=== PATIENT | female | born 1980 | race Caucasian/White ===

== ENCOUNTER 2016-11-10 17:45 | Emergency (ER) | payer BC, OTHER ==
[2016-11-10 17:54] VITALS: BP 126/82
--- NOTE | 2016-11-10 18:13 | EDM.PDOC ---
ED HPI GENERAL MEDICAL PROBLEM - General Chief Complaint: Upper Extremity Injury/Pain Stated Complaint: R HAND INJURY Time Seen by Provider: 11/10/16 17:55 Source of Information: Reports: Patient History Limitations: Reports: No Limitations - History of Present Illness INITIAL COMMENTS - FREE TEXT/NARRATIVE: Patient has a fracture of her distal right ulna Chief complaint his cast is too tight with constant throbbing severe pain over the dorsal right wrist and dorsal hand. No doubt the tissues have swollen due to the heat outside in the arm likely being held by her side. Chest is due to come off on Wednesday which is 3 days away. Plan bivalve cast Onset: Today Onset Date: 11/10/16 Duration: Hour(s): Location: Reports: Upper Extremity, Right Quality: Reports: Pressure, Throbbing Severity: Moderate Improves with: Reports: None Worsens with: Reports: None Context: Denies: Activity, Exercise, Lifting, Sick Contact, Trauma, Other Associated Symptoms: Reports: No Other Symptoms Treatments EYE SURGEON: Reports: Other (see below) (None.) Right Hand Pain Score (Numeric/FACES): 6 - Related Data Allergies Allergy/AdvReac Type Severity Reaction Status Date / Time codeine Allergy Hives Verified 11/10/16 17:55 Home Meds: Home Meds . [No Known Home Meds] 11/10/16 [History] Past Medical History Cardiovascular History: Reports: Blood Clots/VTE/DVT - Past Surgical History Female Surgical History: Reports: Oophorectomy, Tubal Ligation Social & Family History - Tobacco Use Smoking Status *Q: Current Some Day Smoker Years of Tobacco use: 1 Packs/Tins Daily: 0.1 - Recreational Drug Use Recreational Drug Use: No Review of Systems - Review of Systems Review Of Systems: See Below Constitutional: Reports: No Symptoms Eyes: Reports: No Symptoms Ears: Reports: No Symptoms Nose: Reports: No Symptoms Mouth/Throat: Reports: No Symptoms Respiratory: Reports: No Symptoms Cardiovascular: Reports: No Symptoms GI/Abdominal: Reports: No Symptoms Genitourinary: Reports: No Symptoms Musculoskeletal: Reports: Hand Pain, Other Skin: Reports: No Symptoms (Right wrist pain throbbing.) Neurological: Reports: No Symptoms Psychiatric: Reports: No Symptoms ED EXAM, GENERAL - Physical Exam Exam: See Below Exam Limited By: No Limitations General Appearance: Alert, WD/WN, Mild Distress Extremities: Other (Patient does appear to have swelling of her knuckles dorsal hand on the right side. Pain is constant and throbbing over the fracture site and wrist area.) Neurological: Alert, Oriented, CN II-XII Intact, Normal Cognition Course - Vital Signs Last Recorded V/S: Last Vital Signs Temp 36.8 C 11/10/16 17:52 Pulse 92 11/10/16 17:52 Resp 16 11/10/16 17:52 BP 126/82 11/10/16 17:52 Pulse Ox 97 11/10/16 17:52 - Orders/Labs/Meds Orders: Active Orders 24 hr Category Date Time Status Hand Comp Min 3V Rt [CR] Stat Exams 11/10/16 18:05 Ordered B-TYPE NATRIURETIC PEPTIDE,BNP [CHEM] Stat Lab 11/10/16 18:05 Ordered C-REACTIVE PROTEIN [CHEM] Stat Lab 11/10/16 18:05 Ordered CBC WITH AUTO DIFF [HEME] Stat Lab 11/10/16 18:05 Ordered - Radiology Interpretation Free Text/Narrative:: 36-year-old female with a fracture of her distal right ulna on the right side for the last 5-1/2 weeks presents the ED with complaint of the cast feeling too tight. Feels like squeezing her wrist with constant severe throbbing pain and swelling of the dorsal hand. To have the cast off in 3 days time. She apparently called her orthopedic surgeon's office with no recall back today. Therefore the cast was bivalved and Alfredo wrap to place. Patient got immediate relief of the pain after the cast was bivalved at the wrist. She'll follow-up with Dr. Chavez in the clinic on Wednesday as planned for cast to be removed completely. Departure - Departure Time of Disposition: 18:11 Disposition: Home, Self-Care 01 Condition: Fair Clinical Impression: Cast discomfort - Discharge Information Referrals: PCP,None [Primary Care Provider] - Forms: ED Department Discharge Additional Instructions: Evaluation in resume today due to increasing pain over distal aspect of ulna right wrist under cast. Cast is due to come off in 3 days time. Constant throbbing severe pain at the wrist appreciated with swelling of the hand by patient. Cast therefore bivalved and then Alfredo wrapped in place until follow-up with Dr. Carter on Wednesday as planned.
--- NOTE | 2016-11-10 19:00 | EDM.PDOC ---
ED HPI GENERAL MEDICAL PROBLEM - General Chief Complaint: Upper Extremity Injury/Pain Stated Complaint: R HAND INJURY Time Seen by Provider: 11/10/16 18:05 Source of Information: Reports: Patient History Limitations: Reports: No Limitations - History of Present Illness INITIAL COMMENTS - FREE TEXT/NARRATIVE: Patient presents for evaluation and treatment of an injury to the right hand. Patient reports on Wednesday she was working in the kitchen. She believes she hit her hand on a cabinet hardwear. Her hand has steadily been getting worsen. She is currently complaining of pain, erythema, numbness, tingling and swelling to the dorsal right hand. No wounds or bruising. Additionally patient denies any fevers, chills, nausea or vomiting. Has tried OTC ibuprofen and ice with little relief. Patient is right handed. Onset Date: 11/08/16 Duration: Day(s): (2) Location: Reports: Upper Extremity, Right Right Hand Pain Score (Numeric/FACES): 6 - Related Data Allergies Allergy/AdvReac Type Severity Reaction Status Date / Time codeine Allergy Hives Verified 11/10/16 17:55 Home Meds: Home Meds . [No Known Home Meds] 11/10/16 [History] Past Medical History Cardiovascular History: Reports: Blood Clots/VTE/DVT - Past Surgical History Female Surgical History: Reports: Oophorectomy, Tubal Ligation Social & Family History - Tobacco Use Smoking Status *Q: Current Some Day Smoker Years of Tobacco use: 1 Packs/Tins Daily: 0.1 - Recreational Drug Use Recreational Drug Use: No Review of Systems - Review of Systems Review Of Systems: See Below Constitutional: Denies: Chills, Fever GI/Abdominal: Denies: Nausea, Vomiting Musculoskeletal: Reports: Hand Pain (right), Joint Swelling (right hand) Skin: Reports: Erythema (dorsal right hand). Denies: Bruising Neurological: Reports: Numbness (right hand), Tingling (right hand) ED EXAM, GENERAL - Physical Exam Exam: See Below Exam Limited By: No Limitations General Appearance: Alert, WD/WN, No Apparent Distress Respiratory/Chest: No Respiratory Distress, Lungs Clear Cardiovascular: Normal Peripheral Pulses, Regular Rate, Rhythm Peripheral Pulses: 2+: Radial (L), Radial (R) Extremities: Normal Capillary Refill, Joint Swelling (dorsal right hand metacarpals 2-4), Limited Range of Motion (making a fist causes pain, unable to make a fist; able to flex extend, adduct, abduct and oppose fingers), Increased Warmth (dorsal right hand metacarpals 2-4) Neurological: Alert, Oriented, Normal Cognition, Other (reports good sensation to light touch to the right hand) Psychiatric: Normal Affect, Normal Mood Skin Exam: Warm, Dry, Erythema (swelling and slight erythema to the dorsal right hand over the 2nd and 3rd MTP joints ) Course - Vital Signs Last Recorded V/S: Last Vital Signs Temp 36.8 C 11/10/16 17:52 Pulse 92 11/10/16 17:52 Resp 16 11/10/16 17:52 BP 126/82 11/10/16 17:52 Pulse Ox 97 11/10/16 17:52 - Orders/Labs/Meds Labs: Laboratory Tests 11/10/16 11/10/16 11/10/16 Range/Units 18:20 18:20 18:20 WBC 8.95 (3.98-10.04) K/mm3 RBC 5.20 (3.98-5.22) M/mm3 Hgb 14.1 (11.2-15.7) gm/L Hct 43.5 (34.1-44.9) % MCV 83.7 (79.4-94.8) fl MCH 27.1 (25.6-32.2) pg MCHC 32.4 (32.2-35.5) g/dl RDW Std Deviation 45.3 (36.4-46.3) fL Plt Count 345 (182-369) K/mm3 MPV 10.0 (9.4-12.3) fl Neut % (Auto) 63.0 (34.0-71.1) % Lymph % (Auto) 27.6 (19.3-51.7) % [place] % (Auto) 5.7 (4.7-12.5) % Eos % (Auto) 3.4 (0.7-5.8) Baso % (Auto) 0.2 (0.1-1.2) % Neut # (Auto) 5.64 (1.56-6.13) K/mm3 Lymph # (Auto) 2.47 (1.18-3.74) K/mm3 [place] # (Auto) 0.51 H (0.24-0.36) K/mm3 Eos # (Auto) 0.30 (0.04-0.36) K/mm3 Baso # (Auto) 0.02 (0.01-0.08) K/mm3 Sodium 137 (136-145) mEq/L Potassium 3.7 (3.5-5.1) mEq/L Chloride 101 (98-107) mEq/L Carbon Dioxide 27 (21-32) mEq/L Anion Gap 12.7 (5-15) BUN 14 (7-18) mg/dL Creatinine 0.8 (0.55-1.02) mg/dL Est Cr Clr Drug Dosing 81.19 mL/min Estimated GFR (MDRD) > 60 (>60) mL/min BUN/Creatinine Ratio 17.5 (14-18) Glucose 103 (74-106) mg/dL Calcium 8.9 (8.5-10.1) mg/dL C-Reactive Protein < 0.2 (<1.0) mg/dL - Radiology Interpretation Free Text/Narrative:: xray of the right hand shows no acute fractures or dislocations. Reviewed by myself and Dr. Hancock - Re-Assessments/Exams Free Text/Narrative Re-Assessment/Exam: 11/10/16 18:23 Given the swelling to the hand and the patient is not exactly sure what the mechanisms of injury is. Decided to obtain labs to eval for cellulites. 11/10/16 19:04 Labs returned: wbc is 8,95, hgb is 14.1 and plts are 345 CRP is <0.2 sodium is 137, potassium is 3.7 and chloride is 101. Anion gap is 12.7 I reviewed the labs and imaging with the patient. Appears to be deep bruising and swelling to the hand. Will have her monitor it closely and follow-up with her PCP if not better. Discharge instructions as documented. Departure - Departure Time of Disposition: 19:02 Disposition: Home, Self-Care 01 Condition: Fair Clinical Impression: Hand injury - Discharge Information Referrals: PCP,None [Primary Care Provider] - Nadine Wilde PA-C [Physician Circuits Engineer] - Forms: ED Department Discharge Additional Instructions: Wrist splint and marilu tapping as needed for pain relief. Ice the area 3-4 times a day for 10-15 minutes. [id number] Tylenol or Motrin as needed for pain relief. If your symptoms persist beyond 7-10 days follow-up with family medicine. Recommend Evelia Wilde at the [facility]. Please call [phone] to schedule with her. Please return to the ER if your symptoms change or worsen.
--- NOTE | 2016-11-11 07:57 | CR ---
Right hand: Four portable views of the right hand were obtained. Comparison: No previous study. Joint spaces are maintained. No fracture, dislocation or other bony abnormality is seen. Mild soft tissue swelling is present. Impression: 1. Mild soft tissue swelling. No bony abnormality is appreciated on right hand study. Diagnostic code #2
== END 2016-11-10 19:38 | disposition home or self-care (01) ==
LOC: JD.ED 17:45
DX: Z47.89 Encounter for other orthopedic aftercare (principal); F17.210 Nicotine dependence, cigarettes, uncomplicated; Z88.5 Allergy status to narcotic agent; Z90.710 Acquired absence of both cervix and uterus
CPT/HCPCS: 36415; 73130-26-RT; 73130-RT; 80048; 85025; 86140; 99283; 99284

== ENCOUNTER 2017-03-04 06:32 | Day surgery (SDC) | payer BC ==
[~2017-03-04 06:32] MED LIST: Lactated Ringers 1,000 ML IV SCH; Lidocaine 1%/Sod Bicarbonate in NS 8.4% 1 ML Syringe IV PRN; Sodium Chloride 0.9% 10 ML Syringe FLUSH PRN
[2017-03-04] MEDS ORDERED: Bupivacaine 0.25% 30 ML SDV ONE (06:41)
[2017-03-04] MEDS ORDERED: EPINEPHrine 1 MG/ML 30 ML MDV ONE (06:41)
--- NOTE | 2017-03-04 06:56 | PCM.PREANE ---
Preanesthetic Assessment - Anesthesia/Transfusion/Family Hx Anesthesia History: Prior Anesthesia Without Reaction Family History of Anesthesia Reaction: No Transfusion History: No Prior Transfusion(s) - Review of Systems General: No Symptoms Pulmonary: No Symptoms Cardiovascular: No Symptoms Gastrointestinal: No Symptoms Neurological: Numbness (patricia feet and hands) Other: Reports: None - Physical Assessment NPO Status Date: 03/03/17 NPO Status Time: 00:00 Pulse: 58 O2 Sat by Pulse Oximetry: 98 Respiratory Rate: 16 Blood Pressure: 127/80 Temperature: 36.8 C Height: 1.6 m Weight: 90.991 kg ASA Class: 2 Mental Status: Alert & Oriented x3 Airway Class: Mallampati = 1 Dentition: Reports: Normal Dentition Thyro-Mental Finger Breadths: 3 Mouth Opening Finger Breadths: 3 ROM/Head Extension: Full Lungs: Clear to Auscultation, Normal Respiratory Effort Cardiovascular: Regular Rate, Regular Rhythm, No Murmurs - Lab Values: Laboratory Last Values MRSA (PCR) Negative 02/24/17 15:20 - Allergies Allergies/Adverse Reactions: Allergies Allergy/AdvReac Type Severity Reaction Status Date / Time codeine Allergy Hives Verified 03/03/17 12:52 - Anesthesia Plan Pre-Op Medication Ordered: None - Acknowledgements Anesthesia Type Planned: General Anesthesia Pt an Appropriate Candidate for the Planned Anesthesia: Yes Alternatives and Risks of Anesthesia Discussed w Pt/Guardian: Yes Pt/Guardian Understands and Agrees with Anesthesia Plan: Yes PreAnesthesia Questionnaire HEENT History: Reports: Impaired Vision, Other (See Below) Other HEENT History: wears glasses Cardiovascular History: Reports: Blood Clots/VTE/DVT Respiratory History: Reports: None Gastrointestinal History: Reports: None, GERD Genitourinary History: Reports: None BELLY DUMP DRIVER History: Reports: None Musculoskeletal History: Reports: None Neurological History: Reports: None Psychiatric History: Reports: None Endocrine/Metabolic History: Reports: None Hematologic History: Reports: None Immunologic History: Reports: None Oncologic (Cancer) History: Reports: None Dermatologic History: Reports: None - Past Surgical History Head Surgeries/Procedures: Reports: None Cardiovascular Surgical History: Reports: None Respiratory Surgical History: Reports: None GI Surgical History: Reports: None Female Surgical History: Reports: Oophorectomy, Tubal Ligation Male Surgical History: Reports: None Endocrine Surgical History: Reports: None Neurological Surgical History: Reports: None Musculoskeletal Surgical History: Reports: None Oncologic Surgical History: Reports: None Dermatological Surgical History: Reports: None - SUBSTANCE USE Smoking Status *Q: Current Some Day Smoker Tobacco Use Within Last Twelve Months: Cigarettes Recreational Drug Use History: No - HOME MEDS Home Medications: Home Meds . [No Known Home Meds] 11/10/16 [History] - CURRENT (IN HOUSE) MEDS Current Meds: Current Medications Lactated Ringer's (Ringers, Lactated) 1,000 mls @ 125 mls/hr IV ASDIRECTED KRISH Lidocaine/Sodium Bicarbonate (Buffered Lidocaine 1% In Ns 8.4%) 0.25 ml IV ONETIME PRN PRN Reason: Prior to IV Start Sodium Chloride (Saline Flush) 10 ml FLUSH ASDIRECTED PRN PRN Reason: Keep Vein Open
[2017-03-04] MEDS ORDERED: fentaNYL 250 MCG/5 ML SDV ONE (07:17)
[2017-03-04] MEDS ORDERED: Midazolam 1 MG/ML 2 ML SDV ONE (07:17)
[2017-03-04] MEDS ORDERED: Ondansetron 4 MG/2 ML SDV ONE (07:17)
[2017-03-04] MEDS ORDERED: Propofol 200 MG/20 ML SDV ONE (07:17)
[2017-03-04] MEDS ORDERED: Rocuronium 50 MG/5 ML Vial ONE (07:17)
[2017-03-04] MEDS ORDERED: Lidocaine 1% 4 ML ONE (07:27)
[2017-03-04] MEDS ORDERED: ceFAZolin 1 GM Vial ONE (07:39)
[2017-03-04] MEDS ORDERED: Ketorolac 30 MG/ML SDV ONE (08:14)
[2017-03-04] MEDS ORDERED: fentaNYL 100 MCG/2 ML SDV IVPUSH PRN (08:33)
[2017-03-04] MEDS ORDERED: HYDROmorphone 0.5 MG/0.5 ML Syringe IVPUSH PRN (08:33)
--- NOTE | 2017-03-04 08:35 | PCM.POSTAN ---
POST ANESTHESIA ASSESSMENT - MENTAL STATUS Mental Status: Alert, Oriented - VITAL SIGNS Pulse Rate: 114 SaO2: 96 Resp Rate: 16 Blood Pressure: 139/74 Temperature: 36.9 C - RESPIRATORY Respiratory Status: Respiratory Rate WNL, Airway Patent, O2 Saturation Stable, Supplemental Oxygen - CARDIOVASCULAR CV Status: Pulse Rate WNL, Blood Pressure Stable - GASTROINTESTINAL GI Status: No Symptoms - PAIN Pain Score: 0 - POST OP HYDRATION Hydration Status: Adequate & Stable - OBSERVATIONS Free Text/Narrative:: no anesthesia complications noted
[2017-03-04 09:43] VITALS: BP 113/71
--- NOTE | 2017-03-15 11:47 | PCM.OPNOTE ---
- General Post-Op/Procedure Note Date of Surgery/Procedure: 03/04/17 Operative Procedure(s): right knee video arthroscopy with chondroplasty of the patella Pre Op Diagnosis: right knee patellar maltracking and osteoarthritis Post-Op Diagnosis: Same Anesthesia Technique: General LMA, Local Primary Surgeon: Luis Morgan Anesthesia Provider: Marco A Hartmann Trim Mounter: Dunia Toledo EBMargie in mLs: 5 Complications: None Condition: Good
--- NOTE | 2017-03-15 12:40 | OR ---
DATE OF OPERATION: 03/04/2017 SURGEON: Luis Morgan MD OPERATION PERFORMED: Right knee video arthroscopy with chondroplasty of the patella. PREOPERATIVE DIAGNOSIS: Right knee patellar maltracking and osteoarthritis. POSTOPERATIVE DIAGNOSIS: Right knee patellar maltracking and osteoarthritis. ANESTHESIA: General LMA with local. ANESTHESIA PROVIDER: Marco A Hartmann CRNA SAGGER SOAK: Dunia Toledo PA-C. ESTIMATED BLOOD LOSS: Less than 5 mL. COMPLICATIONS: None. CONDITION: Stable. DESCRIPTION OF PROCEDURE: The patient was identified in the preoperative holding area, proper site was marked, and identified by the surgeon. The patient was taken back to the operating theater, where she was placed supine on radiolucent table and the right lower extremity had a nonsterile tourniquet applied and was then sterilely prepped and draped in the usual sterile fashion. OR time-out was performed. The patient received 2 g IV Ancef. At this time, right lower extremity was exsanguinated and tourniquet was insufflated 250 mmHg. The patient's knee was then flexed and anterior lateral portal was created. Scope trocar was introduced. At this time, attention was turned to the patella. The patella, at this time, showed significant grade 3 chondromalacia of both the central medial and lateral facets. At this time, attention was turned to the medial compartment, which showed no signs of medial meniscus tear or chondromalacia. The ACL was intact in the notch. Lateral compartment showed no signs of chondromalacia or lateral meniscus tear. At this time, a posterior lateral portal was then created and the scope trocar was introduced to it. The patient's knee was brought through a range of motion and was for the most part, tracking centrally where there was a little bit of lateral patellar tilt but there was also noted to be significant chondromalacia of the lateral facet and the medial facet as well. At this time, secondary to this, a re-alignment of the patella was not indicated, as all 3 facets are affected. At this time, with the use of a 4-0 resector, I was able to perform a chondroplasty of the patella back to a stable rim of any of loose chondral fragments. Excess saline was then drained from the knee. 3-0 nylon simple suture was used for closure of the skin and the patient was placed in the sterile soft dressing. The patient tolerated the procedure well and sent to PACU in stable condition. JAMIA /[id number]
== END 2017-03-04 10:25 | disposition home or self-care (01) ==
LOC: JD.SDS 06:32
PROVIDERS: ATTEND Orthopaedic Surgery
DX: M22.41 Chondromalacia patellae, right knee (principal); M17.11 Unilateral primary osteoarthritis, right knee; M22.8X1 Other disorders of patella, right knee; K21.9 Gastro-esophageal reflux disease without esophagitis; F17.210 Nicotine dependence, cigarettes, uncomplicated; E66.9 Obesity, unspecified; Z68.36 Body mass index [BMI] 36.0-36.9, adult; Z88.5 Allergy status to narcotic agent; Z86.711 Personal history of pulmonary embolism; Z86.718 Personal history of other venous thrombosis and embolism; Z80.3 Family history of malignant neoplasm of breast; Z98.51 Tubal ligation status; Z90.721 Acquired absence of ovaries, unilateral
CPT/HCPCS: 29877; 87641; J0171; J0690; J1170; J1885; J2250; J2405; J3010; J3490; J7120; 01400; J2704

== ENCOUNTER 2017-11-09 19:54 | Emergency (ER) | payer BC ==
--- NOTE | 2017-11-09 20:22 | EDM.PDOC ---
ED HPI GENERAL MEDICAL PROBLEM - General Chief Complaint: Chest Pain Stated Complaint: CHEST PAIN SOB Time Seen by Provider: 11/09/17 20:16 - History of Present Illness INITIAL COMMENTS - FREE TEXT/NARRATIVE: 37-year-old female presents emergency room chest pain. Patient's histor pulmonary embolism in the past and this is acting very much like this her pain is mostly left substernal anterior left chest and into the shoulder. She has sharp pain with deep inspiration. The patient just drove up from [place] yesterday she had discomfort in her right calf this seems to be getting better. Patient's chest pain is sharp worse with deep inspiration her respirations are perhaps a little labored. Chest Pain Score (Numeric/FACES): 6 - Related Data Allergies Allergy/AdvReac Type Severity Reaction Status Date / Time codeine Allergy Hives Verified 11/09/17 20:01 Home Meds: Home Meds Apixaban [Eliquis] 5 mg PO Q12H #60 tablet 11/09/17 [Rx] Apixaban [Eliquis] 10 mg PO Q12H #28 tablet 11/09/17 [Rx] Pantoprazole Sodium [Protonix] 40 mg PO DAILY 11/09/17 [History] metFORMIN HCl [Metformin HCl ER] 500 mg PO QID 11/09/17 [History] Past Medical History HEENT History: Reports: Impaired Vision, Other (See Below) Other HEENT History: wears glasses Cardiovascular History: Reports: Blood Clots/VTE/DVT Respiratory History: Reports: None Gastrointestinal History: Reports: None, GERD Genitourinary History: Reports: None PURCHASING INTERN History: Reports: None Musculoskeletal History: Reports: None Neurological History: Reports: None Psychiatric History: Reports: None Endocrine/Metabolic History: Reports: None Hematologic History: Reports: None Immunologic History: Reports: None Oncologic (Cancer) History: Reports: None Dermatologic History: Reports: None - Past Surgical History Head Surgeries/Procedures: Reports: None Cardiovascular Surgical History: Reports: None Respiratory Surgical History: Reports: None GI Surgical History: Reports: None Female Surgical History: Reports: Oophorectomy, Tubal Ligation Endocrine Surgical History: Reports: None Neurological Surgical History: Reports: None Musculoskeletal Surgical History: Reports: None Oncologic Surgical History: Reports: None Dermatological Surgical History: Reports: None Social & Family History - Tobacco Use Smoking Status *Q: Never Smoker - Caffeine Use Caffeine Use: Reports: Coffee, Soda - Recreational Drug Use Recreational Drug Use: No ED ROS GENERAL - Review of Systems Review Of Systems: See Below Constitutional: Reports: No Symptoms HEENT: Reports: No Symptoms Respiratory: Reports: Shortness of Breath, Pleuritic Chest Pain. Denies: Cough , Sputum, Hemoptysis Cardiovascular: Reports: Chest Pain. Denies: Dyspnea on Exertion, Edema, Palpitations Endocrine: Reports: No Symptoms GI/Abdominal: Reports: No Symptoms : Reports: No Symptoms Musculoskeletal: Reports: No Symptoms Skin: Reports: No Symptoms Neurological: Reports: No Symptoms Psychiatric: Reports: No Symptoms Hematologic/Lymphatic: Reports: No Symptoms ED EXAM, GENERAL - Physical Exam Exam: See Below Exam Limited By: No Limitations General Appearance: Alert, No Apparent Distress Eye Exam: Bilateral Eye: Normal Inspection, Proptosis Ears: Normal External Exam, Normal Canal, Hearing Grossly Normal, Normal TMs Throat/Mouth: Normal Inspection, Normal Lips, Normal Teeth, Normal Gums, Normal Oropharynx, Normal Voice, No Airway Compromise Head: Atraumatic, Normocephalic Neck: Normal Inspection, Supple, Non-Tender, Full Range of Motion. No: Lymphadenopathy (L), Lymphadenopathy (R) Respiratory/Chest: No Respiratory Distress, Lungs Clear, Normal Breath Sounds, Other (Respiratory rate up at times) Cardiovascular: Regular Rate, Rhythm, No Edema, No JVD, No Murmur GI/Abdominal: Normal Bowel Sounds, Soft, Non-Tender Back Exam: Normal Inspection. No: CVA Tenderness (L), CVA Tenderness (R) Skin Exam: Warm, Dry, Intact, Normal Color Course - Vital Signs Last Recorded V/S: Last Vital Signs Temp 36.8 C 11/09/17 20:02 Pulse 84 11/09/17 21:09 Resp 20 11/09/17 21:09 BP 118/71 11/09/17 21:09 Pulse Ox 96 11/09/17 21:09 - Orders/Labs/Meds Orders: Active Orders 24 hr Category Date Time Status EKG 12 Lead [EKG Documentation Completion] [RC] STAT Care 11/09/17 20:08 Active Ang Chest [CT] Stat Exams 11/09/17 20:24 Taken Sodium Chloride 0.9% [Normal Saline] 1,000 ml Med 11/09/17 20:30 Active IV ASDIRECTED Medication Orders Sodium Chloride (Normal Saline) 1,000 mls @ 125 mls/hr IV ASDIRECTED KRISH Last Admin: 11/09/17 21:57 Dose: 125 mls/hr Labs: Laboratory Tests 11/09/17 11/09/17 11/09/17 Range/Units 20:30 20:30 20:30 WBC 8.81 (3.98-10.04) K/mm3 RBC 4.94 (3.98-5.22) M/mm3 Hgb 12.0 (11.2-15.7) gm/L Hct 38.5 (34.1-44.9) % MCV 77.9 L (79.4-94.8) fl MCH 24.3 L (25.6-32.2) pg MCHC 31.2 L (32.2-35.5) g/dl RDW Std Deviation 41.6 (36.4-46.3) fL Plt Count 327 (182-369) K/mm3 MPV 9.6 (9.4-12.3) fl Neut % (Auto) 71.3 H (34.0-71.1) % Lymph % (Auto) 19.8 (19.3-51.7) % York % (Auto) 6.0 (4.7-12.5) % Eos % (Auto) 2.7 (0.7-5.8) Baso % (Auto) 0.1 (0.1-1.2) % Neut # (Auto) 6.28 H (1.56-6.13) K/mm3 Lymph # (Auto) 1.74 (1.18-3.74) K/mm3 York # (Auto) 0.53 H (0.24-0.36) K/mm3 Eos # (Auto) 0.24 (0.04-0.36) K/mm3 Baso # (Auto) 0.01 (0.01-0.08) K/mm3 PT (9.5-12.1) SECONDS INR APTT (24-31) SECONDS D-Dimer, Quantitative 2.75 H (0.19-0.50) mg/L Sodium 139 (136-145) mEq/L Potassium 3.3 L (3.5-5.1) mEq/L Chloride 105 (98-107) mEq/L Carbon Dioxide 25 (21-32) mEq/L Anion Gap 12.3 (5-15) BUN 6 L (7-18) mg/dL Creatinine 0.8 (0.55-1.02) mg/dL Est Cr Clr Drug Dosing 80.42 mL/min Estimated GFR (MDRD) > 60 (>60) mL/min BUN/Creatinine Ratio 7.5 L (14-18) Glucose 135 H (74-106) mg/dL Calcium 8.9 (8.5-10.1) mg/dL Total Bilirubin 0.6 (0.2-1.0) mg/dL AST 14 L (15-37) U/L ALT 27 (14-59) U/L Alkaline Phosphatase 67 (46-116) U/L Troponin I < 0.017 (0.00-0.056) ng/mL Total Protein 7.6 (6.4-8.2) g/dl Albumin 3.5 (3.4-5.0) g/dl Globulin 4.1 gm/dL Albumin/Globulin Ratio 0.9 L (1-2) 11/09/17 Range/Units 20:30 WBC (3.98-10.04) K/mm3 RBC (3.98-5.22) M/mm3 Hgb (11.2-15.7) gm/L Hct (34.1-44.9) % MCV (79.4-94.8) fl MCH (25.6-32.2) pg MCHC (32.2-35.5) g/dl RDW Std Deviation (36.4-46.3) fL Plt Count (182-369) K/mm3 MPV (9.4-12.3) fl Neut % (Auto) (34.0-71.1) % Lymph % (Auto) (19.3-51.7) % York % (Auto) (4.7-12.5) % Eos % (Auto) (0.7-5.8) Baso % (Auto) (0.1-1.2) % Neut # (Auto) (1.56-6.13) K/mm3 Lymph # (Auto) (1.18-3.74) K/mm3 York # (Auto) (0.24-0.36) K/mm3 Eos # (Auto) (0.04-0.36) K/mm3 Baso # (Auto) (0.01-0.08) K/mm3 PT 11.2 (9.5-12.1) SECONDS INR 1.03 APTT 26 (24-31) SECONDS D-Dimer, Quantitative (0.19-0.50) mg/L Sodium (136-145) mEq/L Potassium (3.5-5.1) mEq/L Chloride (98-107) mEq/L Carbon Dioxide (21-32) mEq/L Anion Gap (5-15) BUN (7-18) mg/dL Creatinine (0.55-1.02) mg/dL Est Cr Clr Drug Dosing mL/min Estimated GFR (MDRD) (>60) mL/min BUN/Creatinine Ratio (14-18) Glucose (74-106) mg/dL Calcium (8.5-10.1) mg/dL Total Bilirubin (0.2-1.0) mg/dL AST (15-37) U/L ALT (14-59) U/L Alkaline Phosphatase (46-116) U/L Troponin I (0.00-0.056) ng/mL Total Protein (6.4-8.2) g/dl Albumin (3.4-5.0) g/dl Globulin gm/dL Albumin/Globulin Ratio (1-2) Meds: Medications Generic Name Dose Route Start Last Admin Trade Name Freq PRN Reason Stop Dose Admin Sodium Chloride 1,000 mls @ 125 mls/hr 11/09/17 20:30 11/09/17 21:57 Normal Saline IV 125 mls/hr ASDIRECTED KRISH Administration Discontinued Medications Generic Name Dose Route Start Last Admin Trade Name Freq PRN Reason Stop Dose Admin Apixaban 10 mg 11/09/17 23:10 Eliquis PO 11/09/17 23:11 ONETIME ONE Sodium Chloride 500 mls @ 999 mls/hr 11/09/17 20:26 11/09/17 21:08 Normal Saline IV 11/09/17 20:56 999 mls/hr .BOLUS ONE Administration - Re-Assessments/Exams Free Text/Narrative Re-Assessment/Exam: 11/09/17 23:11 She has remained stable here in the emergency department her d-dimer was elevated CTA was obtained which shows a right lower lobe segmental and subsegmental pulmonary embolism small left pleural effusion and a possible left lower lobe subsegmental atelectasis versus infiltrate. I discussed the findings of this with the patient and she agrees that if she gets a worsening cough starts developing a fever she'll seek medical care at this point we will start the Ellik was she understands the Ellik was his dose 10 mg twice a day for 1 week and then was decreased to 5 mg twice a day. She's advised to follow-up with her regular provider on .. Departure - Departure Time of Disposition: 23:13 Disposition: Home, Self-Care 01 Clinical Impression: Pulmonary embolism Prescriptions: Apixaban [Eliquis] 10 mg PO Q12H #28 tablet Apixaban [Eliquis] 5 mg PO Q12H #60 tablet Referrals: Verona Chavez PA-C [Primary Care Provider] - Forms: ED Department Discharge Additional Instructions: Return to the emergency room with any questions problems worsening symptoms. Follow-up with your provider on Take your medications as directed Return to the clinic or the emergency room if he get a worsening cough or develop a fever - My Orders Last 24 Hours: My Active Orders 11/09/17 20:08 EKG 12 Lead [EKG Documentation Completion] [RC] STAT 11/09/17 20:24 Ang Chest [CT] Stat 11/09/17 20:30 Sodium Chloride 0.9% [Normal Saline] 1,000 ml IV ASDIRECTED - Assessment/Plan Last 24 Hours: My Active Orders 11/09/17 20:08 EKG 12 Lead [EKG Documentation Completion] [RC] STAT 11/09/17 20:24 Ang Chest [CT] Stat 11/09/17 20:30 Sodium Chloride 0.9% [Normal Saline] 1,000 ml IV ASDIRECTED
[2017-11-09] MEDS ORDERED: Sodium Chloride 0.9% 500 ML IV ONE (20:26)
[2017-11-09] MEDS ORDERED: Sodium Chloride 0.9% 1,000 ML IV SCH (20:30)
[2017-11-09 21:10] VITALS: BP 118/71
[2017-11-09] MEDS ORDERED: Apixaban 5 MG Tab PO ONE (23:10)
--- NOTE | 2017-11-10 09:26 | CT ---
CT Chest Technique: Multiple axial sections through the chest were obtained. Intravenous contrast was utilized. Study performed as a pulmonary angiogram protocol. Findings: Filling defects are seen within the segmental and subsegmental branches within the right lower lung compatible with pulmonary emboli. Small left-sided pleural effusion is seen. 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 Mediastinum and hilar regions show no adenopathy or mass. Small portion of the visualized upper abdominal structures appear within normal limits. Lungs show no acute parenchymal change. Minimal atelectasis and scarring is seen within both lung bases, worse on the left side. Impression: 1. Pulmonary emboli within the segmental and subsegmental branches within the right lower lobe. 2. Small left-sided pleural effusion. 3. Scarring and atelectasis within both lung bases, worse on the left side. Diagnostic code #5 Agree with preliminary report issued by [facility] ([facility] preliminary report dictated on 0 710 and 18, 11:32 PM Central Time)
== END 2017-11-09 23:30 | disposition home or self-care (01) ==
LOC: JD.ED 19:54
DX: I26.99 Other pulmonary embolism without acute cor pulmonale (principal); K21.9 Gastro-esophageal reflux disease without esophagitis; Z88.5 Allergy status to narcotic agent; Z79.899 Other long term (current) drug therapy; Z79.84 Long term (current) use of oral hypoglycemic drugs
CPT/HCPCS: 36415; 71275; 80053; 84484; 85025; 85379; 85610; 85730; 93005; 96360; 96361; 99285; A9270; J7040; 99284

== ENCOUNTER 2018-05-26 08:36 | Emergency (ER) | payer BC ==
[2018-05-26 08:48] VITALS: BP 158/100
--- NOTE | 2018-05-26 09:29 | EDM.PDOC ---
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 She states that she has passed a few clots. She states that she feels dizzy when she stands. The patient has a DVT diagnosed in July 2014, and was on anticoagulant for 6 months. She then developed a pulmonary embolus in October 2017. She was initially started on Eliquis, but switched to Xarelto about 2 weeks later, and she has remained on that. 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 The patient is status post a right salpingo-oophorectomy and a left tubal ligation. She is sexually active. Her OB/Gyne is Dr. Christian. Her PCP is Shawnee Jacobs. Pelvic Pain Score (Numeric/FACES): 8 - Related Data Allergies Allergy/AdvReac Type Severity Reaction Status Date / Time codeine Allergy Hives Verified 11/09/17 20:01 Sulfa (Sulfonamide Allergy Hives Verified 05/26/18 08:48 Antibiotics) Home Meds: Home Meds Norethindrone [Norethindrone Acetate] 1 tab PO DAILY #10 tab 05/26/18 [Rx] Orphenadrine [Norflex] 1 tab PO Q12H PRN #14 tab.er 05/26/18 [Rx] Rivaroxaban [Xarelto] 20 mg PO DAILY 05/26/18 [History] Past Medical History HEENT History: Reports: Impaired Vision Other HEENT History: wears glasses Cardiovascular History: Reports: Blood Clots/VTE/DVT (July 2014) Respiratory History: Reports: PE (October 2017) Gastrointestinal History: Reports: GERD Musculoskeletal History: Reports: Fracture (left foot) Neurological History: Reports: Other (See Below) (Pseudotumor cerebri) Endocrine/Metabolic History: Reports: Obesity/BMI 30+ Hematologic History: Reports: Anticoagulation Therapy (Xarelto) - Past Surgical History HEENT Surgical History: Reports: Tonsillectomy Female Surgical History: Reports: Salpingo-Oophorectomy (right only), Tubal Ligation (left only) Social & Family History - Tobacco Use Smoking Status *Q: Never Smoker - Caffeine Use Caffeine Use: Reports: Coffee, Soda - Alcohol Use Alcohol Use History: Yes Alcohol Use Frequency: Rarely - Recreational Drug Use Recreational Drug Use: No - Living Situation & Occupation Living situation: Reports: , with Spouse, with Family (7 kids) Occupation: Unemployed ED ROS GENERAL - Review of Systems Review Of Systems: ROS reveals no pertinent complaints other than HPI. ED EXAM, RENAL/ - Physical Exam Exam: See Below Exam Limited By: No Limitations General Appearance: Alert, WD/WN, No Apparent Distress Eye Exam: Bilateral Eye: EOMI, Normal Inspection Ears: Normal External Exam, Hearing Grossly Normal Nose: Normal Inspection Throat/Mouth: Normal Inspection, Normal Lips, Normal Voice, No Airway Compromise Head: Atraumatic, Normocephalic Neck: Normal Inspection, Full Range of Motion Respiratory/Chest: No Respiratory Distress, Lungs Clear, Normal Breath Sounds, No Accessory Muscle Use Cardiovascular: Normal Peripheral Pulses, No Gallop, No JVD, No Murmur, No Rub, Tachycardia (regular) GI/Abdominal: Normal Bowel Sounds, Soft, No Organomegaly, No Distention, No Abnormal Bruit, No Mass, Tender (Pelvis only, left > right. Nontender elsewhere. ), Other (Obese) (Female) Exam: Deferred Rectal (Female) Exam: Deferred Back Exam: Normal Inspection, Full Range of Motion Extremities: Normal Inspection, Normal Range of Motion, No Pedal Edema, Normal Capillary Refill Neurological: Alert, Oriented, Normal Cognition, No Motor/Sensory Deficits Psychiatric: Normal Affect Skin Exam: Warm, Dry, Intact, Normal Color, No Rash Course - Vital Signs Last Recorded V/S: Last Vital Signs Temp 36.8 C 05/26/18 08:42 Pulse 118 H 05/26/18 08:42 Resp 16 05/26/18 08:42 BP 158/100 H 05/26/18 08:42 Pulse Ox 99 05/26/18 08:42 Orthostatic Blood Pressure [ 118/83 Standing] Orthostatic Blood Pressure [ 118/74 Supine] - Orders/Labs/Meds Orders: Active Orders 24 hr Category Date Time Status Orthostatic Vital Signs [RC] STAT Care 05/26/18 09:18 Active Labs: Laboratory Tests 05/26/18 05/26/18 Range/Units 09:30 09:30 WBC 6.11 (3.98-10.04) K/mm3 RBC 4.95 (3.98-5.22) M/mm3 Hgb 8.6 L (11.2-15.7) gm/L Hct 31.3 L (34.1-44.9) % MCV 63.2 L (79.4-94.8) fl MCH 17.4 L (25.6-32.2) pg MCHC 27.5 L (32.2-35.5) g/dl RDW Std Deviation 42.1 (36.4-46.3) fL Plt Count 449 H (182-369) K/mm3 MPV 8.6 L (9.4-12.3) fl Neutrophils % (Manual) 61 H (40-60) % Band Neutrophils % 0 (0-10) % Lymphocytes % (Manual) 24 (20-40) % Atypical Lymphs % 0 % Monocytes % (Manual) 8 (2-10) % Eosinophils % (Manual) 5 (0.7-5.8) % Basophils % (Manual) 2 H (0.1-1.2) Platelet Estimate Adequate Plt Morphology Comment Normal Hypochromasia 2+ moderate Poikilocytosis 2+ moderate Anisocytosis 1+ slight Microcytosis 2+ moderate RBC Morph Comment Not Reportable HCG, Quant < 1.0 mIU/mL Meds: Medications Discontinued Medications Generic Name Dose Route Start Last Admin Trade Name Freq PRN Reason Stop Dose Admin Sodium Chloride 500 mls @ 1,000 mls/hr 05/26/18 09:38 05/26/18 09:44 Normal Saline IV 05/26/18 10:07 1,000 mls/hr .BOLUS ONE Administration Orphenadrine Citrate 100 mg 05/26/18 10:54 05/26/18 10:59 Norflex PO 05/26/18 10:55 100 mg ONETIME STA Administration - Re-Assessments/Exams Free Text/Narrative Re-Assessment/Exam: 05/26/18 09:28 I have ordered a CBC to evaluate for anemia, and a quantitative hCG to make sure that the patient does not have an unknown or ectopic . I also ordered orthostatics, since the patient stated that she has been feeling dizzy. As the patient is on Xarelto, coagulation studies are not meaningful. When I have all of the results back, I will contact her Acquisition Marketing Coordinator, Dr. Christian. 05/26/18 09:38 The patient does not meet criteria for orthostasis, but she did get dizzy when she stood, therefore I have ordered a 500 mL bolus of NS. 05/26/18 10:25 The patient's quantitative hCG is undetectable. The patient's H/H is low at 8.6/31.3. She was not anemic on 2 prior CBCs. Case discussed with Dr. Christian at 10:21. He agreed that the patient does not currently meet criterion for transfusion of PRBCs, however, her H/H should be followed if she continues to bleed. He recommended that we treat the patient with Aygestin (progesterone) 5 mg daily for 10 days, along with FeSO4 325 mg TID. He suggested that the patient could follow-up in his clinic tomorrow if she is still bleeding heavily. They could re-check a H/H at that time. 05/26/18 10:36 The above plan was discussed with the patient, and she is agreeable. She asked what could be given for her menstrual cramps. I will start the patient on Norflex, which historically seems to work quite well for menstrual cramps, and won't sedate the patient. Prescriptions for both Aygestin and Norflex will be [facility] to [facility], and FeSO4 is available [id number]. Departure - Departure Time of Disposition: 10:38 Disposition: Home, Self-Care 01 Condition: Fair Clinical Impression: Heavy menstrual bleeding, Menstrual cramps, Anemia, Anticoagulation therapy continued upon discharge - Discharge Information *PRESCRIPTION DRUG MONITORING PROGRAM REVIEWED*: Not Applicable *COPY OF PRESCRIPTION DRUG MONITORING REPORT IN PATIENT JANETH: Not Applicable Prescriptions: Norethindrone [Norethindrone Acetate] 1 tab PO DAILY #10 tab Orphenadrine [Norflex] 1 tab PO Q12H PRN #14 tab.er PRN Reason: Muscle Spasm Instructions: Anemia Referrals: Shawnee Jacobs MD [Primary Care Provider] - Pilo Christian MD [Physician] - Forms: ED Department Discharge Additional Instructions: You were seen in the emergency room for heavy menstrual bleeding and cramps, along with dizziness when you stand. Workup in the ER included a CBC, a quantitative hCG ( hormone), and positional blood pressure checks. You were found to have modest anemia, with a hemoglobin of 8.6, but not so low as to require a blood transfusion. Your quantitative hCG was undetectable. You are not . Your positional blood pressure checks were within normal limits. You are not excessively dry. Your case was discussed with your Acquisition Marketing Coordinator, Dr. Christian. He recommended that you be started on oral progesterone (Aygestin) and iron sulfate. You have been started on the muscle relaxant Norflex, to help with your menstrual cramps. Prescriptions for Aygestin and Norflex have been sent to the [facility], located in the [facility], across the street from the hospital. Take one tablet of Aygestin per day, starting today, as prescribed. Take one tablet of Norflex every 12 hours, starting this evening, as prescribed. In addition, purchase [id number] iron sulfate, 325 mg. Take one tablet approximately every 8 hours = 3 times a day. If your menstrual bleeding is still heavy by tomorrow, Dr. Christian would like you to follow-up in his office. At that time, they will likely recheck your hemoglobin level. If any other problems, please do not hesitate to return to the ER. - My Orders Last 24 Hours: My Active Orders 05/26/18 09:18 Orthostatic Vital Signs [RC] STAT - Assessment/Plan Last 24 Hours: My Active Orders 05/26/18 09:18 Orthostatic Vital Signs [RC] STAT
[2018-05-26] MEDS ORDERED: Sodium Chloride 0.9% 500 ML IV ONE (09:38)
[2018-05-26] MEDS ORDERED: Orphenadrine 100 MG Tab.ER PO STA (10:54)
== END 2018-05-26 11:00 | disposition home or self-care (01) ==
LOC: JD.ED 08:36
DX: N92.0 Excessive and frequent menstruation with regular cycle (principal); D64.9 Anemia, unspecified; K21.9 Gastro-esophageal reflux disease without esophagitis; Z79.01 Long term (current) use of anticoagulants; Z79.899 Other long term (current) drug therapy; Z88.2 Allergy status to sulfonamides; Z88.5 Allergy status to narcotic agent
CPT/HCPCS: 36415; 84702; 85007; 85027; 99284; A9270; J7040; 99283

== ENCOUNTER 2018-06-13 14:14 | Inpatient (IN) | payer BC ==
[2018-06-13] MEDS ORDERED: diphenhydrAMINE 50 MG/ML SDV IVPUSH PRN (19:30)
[2018-06-13] MEDS ORDERED: Acetaminophen 325 MG Tab PO ONE (19:30)
--- NOTE | 2018-06-13 19:41 | PCM.HP ---
H&P History of Present Illness - General Date of Service: 06/13/18 Admit Problem/Dx: Admission Diagnosis/Problem Admission Diagnosis/Problem Anemia due to blood loss Source of Information: Patient History Limitations: Reports: No Limitations - History of Present Illness Initial Comments - Free Text/Narative: Amelia Katz is a 38 year old who presents for preoperative management of her abnormal uterine bleeding and menorrhagia while on Xarelto for management of her history of PE and DVTs. She reports that she was told by her PCP, Shawnee Jacobs, to stop taking the Xarelto beginning on 06/09/2018 in an attempt to try to allow her body to increase its clotting to stop some of her bleeding. She was also told to stop taking the norethindrone with stopping Xarelto due to the possible increased risk of blood clots. She reported that on 06/10/2018 she had increased amounts of clots after stopping the medications and that she was changing her pad about every 1-1.5 hours. Her bleeding has been somewhat variable with some times heavier than others. She was seen by Shawnee Jacobs in the clinic today and was noted to have a slight increase in her hemoglobin to 8.6. Patient had significant concerns about going back onto her Xarelto even at a lower dose as she is concerned that she may need to have emergent surgery and be on her medication still at that time. She is concerned because she is scheduled for her next menstrual cycle next week and doesn't feel that she would have an increase in her blood count high enough by that time to allow for surgery. She was also concerned about the risk of developing a blood clot or pulmonary embolism while off of her blood thinning medication. She reports that today her bleeding has slowed down significantly and she has had only some slight spotting. She denies passing any blood clots. She does however continue to have significant amount of cramping. She rates the cramping pain at 5-6/10 and it is less when she is not active. She also reports significant increase in back pains with the cramping that she has been having although she is uncertain if this is due to the cramping or recent iron infusion. She reports that she does get somewhat easily fatigued with her blood loss. Recently but that is not been so significant that she is unable to do her daily activities. Onset of Symptoms: Reports: Gradual Symptom Onset Date: 05/26/18 Duration of Symptoms: Reports: Getting Worse Location: Reports: Pelvis Severity: Moderate Improves with: Reports: None. Denies: Medication - Related Data Allergies/Adverse Reactions: Allergies Allergy/AdvReac Type Severity Reaction Status Date / Time codeine Allergy Hives Verified 11/09/17 20:01 Sulfa (Sulfonamide Allergy Hives Verified 05/26/18 08:48 Antibiotics) Home Medications: Home Meds Norethindrone [Norethindrone Acetate] 1 tab PO DAILY #10 tab 05/26/18 [Rx] Orphenadrine [Norflex] 1 tab PO Q12H PRN #14 tab.er 05/26/18 [Rx] Rivaroxaban [Xarelto] 20 mg PO DAILY 05/26/18 [History] Past Medical History HEENT History: Reports: Impaired Vision Other HEENT History: wears glasses Cardiovascular History: Reports: Blood Clots/VTE/DVT (July 2014) Respiratory History: Reports: PE (October 2017) Gastrointestinal History: Reports: GERD Genitourinary History: Reports: None SEASONING SPRAYER History: Reports: None : 7 Para: 7 Musculoskeletal History: Reports: Fracture (left foot) Neurological History: Reports: Other (See Below) (Pseudotumor cerebri) Psychiatric History: Reports: None Endocrine/Metabolic History: Reports: Obesity/BMI 30+ Hematologic History: Reports: Anticoagulation Therapy (Xarelto) Immunologic History: Reports: None Oncologic (Cancer) History: Reports: None Dermatologic History: Reports: None - Past Surgical History HEENT Surgical History: Reports: Tonsillectomy Female Surgical History: Reports: Salpingo-Oophorectomy (right only), Tubal Ligation (left only) Social & Family History - Tobacco Use Smoking Status *Q: Never Smoker - Tobacco Core Measures Tobacco Use/Smoking Within Last 30 Days: No Smokeless Tobacco Use in Last 30 Days: No - Caffeine Use Caffeine Use: Reports: Coffee, Soda - Alcohol Use Alcohol Use History: No - Recreational Drug Use Recreational Drug Use: No Drug Use in Last 12 Months: No - Living Situation & Occupation Living situation: Reports: , with Spouse, with Family (7 kids) Occupation: Unemployed H&P Review of Systems - Review of Systems: Review Of Systems: See Below General: Reports: Fatigue. Denies: Fever, Chills, Malaise, Weakness HEENT: Denies: Post Nasal Drip, Sinus Congestion, Visual Changes Pulmonary: Denies: Shortness of Breath, Cough Cardiovascular: Denies: Chest Pain, Palpitations, Dyspnea on Exertion Gastrointestinal: Reports: Abdominal Pain (mild lower abdominal cramping). Denies: Constipation, Diarrhea, Nausea, Vomiting Genitourinary: Denies: Dysuria, Frequency, Burning, Pain, Urgency Musculoskeletal: Reports: Back Pain (mild after iron infusion last week) Skin: Denies: Rash, Lesions Psychiatric: Denies: Depression, Anxiety Neurological: Denies: Headache, Paresthesia, Syncope Hematologic/Lymphatic: Reports: Anemia, Easy Bleeding (on Xarelto but stopped on 06/09/2018) Exam - Exam Exam: See Below - Vital Signs Weight: 93.894 kg - Exam General: Alert, Oriented HEENT: Conjunctiva Clear, EOMI Neck: Supple, Trachea Midline Lungs: Clear to Auscultation, Normal Respiratory Effort Cardiovascular: Regular Rate, Regular Rhythm GI/Abdominal Exam: Normal Bowel Sounds, Soft, No Distention, Tender (mild tender in lower quadrant). No: Guarding, Rigid, Rebound (Female) Exam: Deferred Extremities: Normal Inspection, Non-Tender, No Pedal Edema Skin: Warm, Dry, Intact Psychiatric: Alert, Normal Affect, Normal Mood - Patient Data Lab Results Last 24 hrs: Laboratory Results - last 24 hr 06/13/18 06/13/18 06/13/18 Range/Units 14:15 14:15 14:15 WBC 8.28 (3.98-10.04) K/mm3 RBC 4.91 (3.98-5.22) M/mm3 Hgb 9.3 L (11.2-15.7) gm/L Hct 33.4 L (34.1-44.9) % MCV 68.0 L (79.4-94.8) fl MCH 18.9 L (25.6-32.2) pg MCHC 27.8 L (32.2-35.5) g/dl RDW Std Deviation 52.0 H (36.4-46.3) fL Plt Count 554 H (182-369) K/mm3 MPV 9.2 L (9.4-12.3) fl Neut % (Auto) 75.7 H (34.0-71.1) % Lymph % (Auto) 17.5 L (19.3-51.7) % [place] % (Auto) 4.7 (4.7-12.5) % Eos % (Auto) 1.7 (0.7-5.8) Baso % (Auto) 0.2 (0.1-1.2) % Neut # (Auto) 6.26 H (1.56-6.13) K/mm3 Lymph # (Auto) 1.45 (1.18-3.74) K/mm3 [place] # (Auto) 0.39 H (0.24-0.36) K/mm3 Eos # (Auto) 0.14 (0.04-0.36) K/mm3 Baso # (Auto) 0.02 (0.01-0.08) K/mm3 Manual Slide Review Abnormal smear PT 11.4 (9.5-12.1) SECONDS INR 1.05 APTT 24 (24-31) SECONDS Sodium 140 (136-145) mEq/L Potassium 3.8 (3.5-5.1) mEq/L Chloride 103 (98-107) mEq/L Carbon Dioxide 24 (21-32) mEq/L Anion Gap 16.8 H (5-15) BUN 8 (7-18) mg/dL Creatinine 0.9 (0.55-1.02) mg/dL Est Cr Clr Drug Dosing TNP Estimated GFR (MDRD) > 60 (>60) mL/min BUN/Creatinine Ratio 8.9 L (14-18) Glucose 118 H (74-106) mg/dL Calcium 9.1 (8.5-10.1) mg/dL Total Bilirubin 0.5 (0.2-1.0) mg/dL AST 16 (15-37) U/L ALT 28 (14-59) U/L Alkaline Phosphatase 69 (46-116) U/L Total Protein 8.1 (6.4-8.2) g/dl Albumin 3.9 (3.4-5.0) g/dl Globulin 4.2 gm/dL Albumin/Globulin Ratio 0.9 L (1-2) Blood Type Gel Antibody Screen 06/13/18 Range/Units 14:15 WBC (3.98-10.04) K/mm3 RBC (3.98-5.22) M/mm3 Hgb (11.2-15.7) gm/L Hct (34.1-44.9) % MCV (79.4-94.8) fl MCH (25.6-32.2) pg MCHC (32.2-35.5) g/dl RDW Std Deviation (36.4-46.3) fL Plt Count (182-369) K/mm3 MPV (9.4-12.3) fl Neut % (Auto) (34.0-71.1) % Lymph % (Auto) (19.3-51.7) % [place] % (Auto) (4.7-12.5) % Eos % (Auto) (0.7-5.8) Baso % (Auto) (0.1-1.2) % Neut # (Auto) (1.56-6.13) K/mm3 Lymph # (Auto) (1.18-3.74) K/mm3 [place] # (Auto) (0.24-0.36) K/mm3 Eos # (Auto) (0.04-0.36) K/mm3 Baso # (Auto) (0.01-0.08) K/mm3 Manual Slide Review PT (9.5-12.1) SECONDS INR APTT (24-31) SECONDS Sodium (136-145) mEq/L Potassium (3.5-5.1) mEq/L Chloride (98-107) mEq/L Carbon Dioxide (21-32) mEq/L Anion Gap (5-15) BUN (7-18) mg/dL Creatinine (0.55-1.02) mg/dL Est Cr Clr Drug Dosing Estimated GFR (MDRD) (>60) mL/min BUN/Creatinine Ratio (14-18) Glucose (74-106) mg/dL Calcium (8.5-10.1) mg/dL Total Bilirubin (0.2-1.0) mg/dL AST (15-37) U/L ALT (14-59) U/L Alkaline Phosphatase (46-116) U/L Total Protein (6.4-8.2) g/dl Albumin (3.4-5.0) g/dl Globulin gm/dL Albumin/Globulin Ratio (1-2) Blood Type A POSITIVE Gel Antibody Screen Negative Result Diagrams: 06/13/18 14:15 06/13/18 14:15 EKG INTERPRETATION EKG Date: 06/07/18 Time: 14:19 Rhythm: NSR Rate (Beats/Min): 98 [place]: Normal P-Wave: Present QRS: Normal ST-T: Normal QT: Normal SC/PQ Interval: 202 EKG Interpretation Comments: Sinus rhythm Borderline prolonged SC interval Borderline T abnormalities, anterior leads *Q Meaningful Use (ADM) - VTE *Q VTE Pharmacological Contraindications *Q: Patient Scheduled Surgery - VTE Risk Assess *Q Each Risk Factor Represents 1 Point: Minor Surgery Planned, Obesity ( BMI > 25 kg/m2) Total Score 1 Point Risk Factors: 2 Each Risk Factor Represents 3 Points: History of DVT/PE Total Score 3 Point Risk Factors: 3 - Problem List (1) History of pulmonary embolism SNOMED Code(s): 353225736 ICD Code: Z86.711 - PERSONAL HISTORY OF PULMONARY EMBOLISM Status: Acute Current Visit: Yes (2) Anemia SNOMED Code(s): 847292765 ICD Code: D64.9 - ANEMIA, UNSPECIFIED Status: Acute Current Visit: No (3) Heavy menstrual bleeding SNOMED Code(s): 527168570 ICD Code: N92.0 - EXCESSIVE AND FREQUENT MENSTRUATION WITH REGULAR CYCLE Status: Acute Current Visit: No (4) Menstrual cramps SNOMED Code(s): 076193645 ICD Code: N94.6 - DYSMENORRHEA, UNSPECIFIED Status: Acute Current Visit: No Problem List Initiated/Reviewed/Updated: Yes Orders Last 24hrs: Active Orders 24 hr Category Date Time Status Patient Status [ADT] Routine ADT 06/13/18 19:09 Active Antiembolic Devices [RC] PER UNIT ROUTINE Care 06/13/18 19:13 Active Verify Patient Consent Obtain [RC] PER UNIT ROUTINE Care 06/13/18 19:10 Active Vital Signs [RC] PER UNIT ROUTINE Care 06/13/18 19:10 Active NPO After Midnight [Nothing per Oral After Midnight Diet 06/14/18 Breakfast Active Diet] [DIET] Regular Diet [DIET] Diet 06/13/18 Dinner Active CBC WITH AUTO DIFF [HEME] AM Lab 06/14/18 05:11 Ordered Lactated Ringers [Ringers, Lactated] 1,000 ml Med 06/14/18 00:00 Ordered IV ASDIRECTED ceFAZolin [Ancef] 2 gm Med 06/14/18 09:15 Ordered Premix Bag 1 bag IV ONETIME diphenhydrAMINE [Benadryl] Med 06/13/18 19:30 Active 50 mg IVPUSH Q4H PRN Sequential Compression Device [OM.PC] Per Unit Routine Oth 06/13/18 19:13 Ordered Transfuse RBC [Transfuse Red Blood Cells] [COMM] Oth 06/13/18 19:00 Ordered Routine Resuscitation Status Routine Resus Stat 06/13/18 19:09 Ordered Medication Orders Diphenhydramine HCl (Benadryl) 50 mg IVPUSH Q4H PRN PRN Reason: Itching Cefazolin Sodium/Dextrose 2 gm (/ Premix) 50 mls @ 100 mls/hr IV ONETIME ONE Stop: 06/14/18 09:44 Lactated Ringer's (Ringers, Lactated) 1,000 mls @ 125 mls/hr IV ASDIRECTED KRISH Assessment/Plan Comment:: * Admit to inpatient for preparation for planned hysterectomy. Reviewed consents that were previously signed with patient for planned total vaginal hysterectomy with left salpingo-oophorectomy. Patient desires to have salpingo- oophorectomy after further discussion with her PCP, Shawnee Jacobs. Also discussed the possibility of a laparoscopic-assisted vaginal hysterectomy or a total abdominal hysterectomy. Patient desires to proceed with surgery in the morning as discussed. * Patient to be given 2 units packed red blood cell transfusion in preparation for surgery * Place IV and have normal saline at 125 ml/hr after midnight once patient is nothing by mouth * Patient may have regular diet until midnight and afterwards should be nothing by mouth * Activity as tolerated * SCDs when patient is not up walking around or out of bed * Plan for general anesthesia * CBC in the morning prior to surgery to ensure that her hemoglobin is at a high enough level for surgery * Plan for Ancef 2 g IV for antibiotic prophylaxis prior to surgery Roberto Lozano M.D. 8:02 PM 06/13/2018
--- NOTE | 2018-06-13 19:56 | PCM.SN ---
- Free Text/Narrative Note: [id number] IV started 20 guage right hand. [email or web address]
[2018-06-13] MEDS ORDERED: Sodium Chloride 0.9% 1,000 ML IV SCH (20:15)
[2018-06-14] MEDS ORDERED: Lactated Ringers 1,000 ML IV SCH
[2018-06-14] MEDS ORDERED: Sodium Chloride 0.9% 10 ML Syringe FLUSH PRN (07:48)
[2018-06-14] MEDS ORDERED: Lidocaine 1%/Sod Bicarbonate in NS 8.4% 1 ML Syringe IDERM PRN (07:48)
[2018-06-14] MEDS: Lactated Ringers 1,000 ML IV SCH ×2 (08:16→12:02)
[2018-06-14] MEDS ORDERED: Lidocaine 1% with EPINEPHrine 1:100,000 20 ML MDV ONE (08:31)
[2018-06-14] MEDS ORDERED: Sodium Chloride 0.9% 50 ML SDV ONE (08:31)
--- NOTE | 2018-06-14 08:37 | PCM.PREANE ---
Preanesthetic Assessment - Anesthesia/Transfusion/Family Hx Anesthesia History: Prior Anesthesia Without Reaction Family History of Anesthesia Reaction: No Transfusion History: Prior Transfusion Without Reaction (2 units PRBCs prior to OR) - Review of Systems General: No Symptoms Pulmonary: No Symptoms Cardiovascular: No Symptoms Gastrointestinal: No Symptoms (Occasional GERD with certain foods. ) Neurological: Other (Numbness in hands and feet at times.) Other: Reports: Easy Bleeding (DVT 2014 PE 2017 on xarelto. Stopped on 06/09/18.) - Physical Assessment NPO Status Date: 06/14/18 NPO Status Time: 00:01 Pulse: 77 O2 Sat by Pulse Oximetry: 96 Respiratory Rate: 16 Blood Pressure: 116/65 Temperature: 37.2 C Vital Signs: Last Vital Signs Temp 37.2 C 06/14/18 04:11 Pulse 77 06/14/18 04:11 Resp 16 06/14/18 04:11 BP 116/65 06/14/18 04:11 Pulse Ox 96 06/14/18 04:11 Height: 1.63 m Weight: 93.894 kg ASA Class: 2 Mental Status: Alert & Oriented x3 Airway Class: Mallampati = 1 Dentition: Reports: Normal Dentition Thyro-Mental Finger Breadths: 3 Mouth Opening Finger Breadths: 3 ROM/Head Extension: Full Lungs: Clear to Auscultation, Normal Respiratory Effort Cardiovascular: Regular Rate, Regular Rhythm - Lab Values: Laboratory Last Values WBC 5.93 K/mm3 (3.98-10.04) 06/14/18 07:38 RBC 5.02 M/mm3 (3.98-5.22) 06/14/18 07:38 Hgb 10.3 gm/L (11.2-15.7) L 06/14/18 07:38 Hct 35.3 % (34.1-44.9) 06/14/18 07:38 MCV 70.3 fl (79.4-94.8) L 06/14/18 07:38 MCH 20.5 pg (25.6-32.2) L 06/14/18 07:38 MCHC 29.2 g/dl (32.2-35.5) L 06/14/18 07:38 RDW Std Deviation 60.5 fL (36.4-46.3) H 06/14/18 07:38 Plt Count 429 K/mm3 (182-369) H 06/14/18 07:38 MPV 8.9 fl (9.4-12.3) L 06/14/18 07:38 Neut % (Auto) 64.7 % (34.0-71.1) 06/14/18 07:38 Lymph % (Auto) 25.8 % (19.3-51.7) 06/14/18 07:38 [place] % (Auto) 6.6 % (4.7-12.5) 06/14/18 07:38 Eos % (Auto) 2.4 (0.7-5.8) 06/14/18 07:38 Baso % (Auto) 0.2 % (0.1-1.2) 06/14/18 07:38 Neut # (Auto) 3.84 K/mm3 (1.56-6.13) 06/14/18 07:38 Lymph # (Auto) 1.53 K/mm3 (1.18-3.74) 06/14/18 07:38 [place] # (Auto) 0.39 K/mm3 (0.24-0.36) H 06/14/18 07:38 Eos # (Auto) 0.14 K/mm3 (0.04-0.36) 06/14/18 07:38 Baso # (Auto) 0.01 K/mm3 (0.01-0.08) 06/14/18 07:38 Manual Slide Review Abnormal smear 06/14/18 07:38 PT 11.4 SECONDS (9.5-12.1) 06/13/18 14:15 INR 1.05 06/13/18 14:15 APTT 24 SECONDS (24-31) 06/13/18 14:15 Sodium 140 mEq/L (136-145) 06/13/18 14:15 Potassium 3.8 mEq/L (3.5-5.1) 06/13/18 14:15 Chloride 103 mEq/L (98-107) 06/13/18 14:15 Carbon Dioxide 24 mEq/L (21-32) 06/13/18 14:15 Anion Gap 16.8 (5-15) H 06/13/18 14:15 BUN 8 mg/dL (7-18) 06/13/18 14:15 Creatinine 0.9 mg/dL (0.55-1.02) 06/13/18 14:15 Est Cr Clr Drug Dosing TNP 06/13/18 14:15 Estimated GFR (MDRD) > 60 mL/min (>60) 06/13/18 14:15 BUN/Creatinine Ratio 8.9 (14-18) L 06/13/18 14:15 Glucose 118 mg/dL (74-106) H 06/13/18 14:15 Calcium 9.1 mg/dL (8.5-10.1) 06/13/18 14:15 Total Bilirubin 0.5 mg/dL (0.2-1.0) 06/13/18 14:15 AST 16 U/L (15-37) 06/13/18 14:15 ALT 28 U/L (14-59) 06/13/18 14:15 Alkaline Phosphatase 69 U/L (46-116) 06/13/18 14:15 Total Protein 8.1 g/dl (6.4-8.2) 06/13/18 14:15 Albumin 3.9 g/dl (3.4-5.0) 06/13/18 14:15 Globulin 4.2 gm/dL 06/13/18 14:15 Albumin/Globulin Ratio 0.9 (1-2) L 06/13/18 14:15 Blood Type A POSITIVE 06/13/18 14:15 Gel Antibody Screen Negative 06/13/18 14:15 Crossmatch See Detail 06/13/18 20:35 - Allergies Allergies/Adverse Reactions: Allergies Allergy/AdvReac Type Severity Reaction Status Date / Time codeine Allergy Hives Verified 11/09/17 20:01 Sulfa (Sulfonamide Allergy Hives Verified 05/26/18 08:48 Antibiotics) - Anesthesia Plan Pre-Op Medication Ordered: None - Acknowledgements Anesthesia Type Planned: General Anesthesia Pt an Appropriate Candidate for the Planned Anesthesia: Yes Alternatives and Risks of Anesthesia Discussed w Pt/Guardian: Yes Pt/Guardian Understands and Agrees with Anesthesia Plan: Yes PreAnesthesia Questionnaire HEENT History: Reports: Impaired Vision Other HEENT History: wears glasses Cardiovascular History: Reports: Blood Clots/VTE/DVT (July 2014) Respiratory History: Reports: PE (October 2017) Other Respiratory History: HX PE 2018 Gastrointestinal History: Reports: GERD Other Gastrointestinal History: pt states hernia was minor and nothing done Genitourinary History: Reports: None ELECTROLYSIST History: Reports: None Other OB/BYN History: Here for hysterctomy in am Musculoskeletal History: Reports: Fracture (left foot) Other Musculoskeletal History: HX of fracture in left foot. 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 Psychiatric History: Reports: None Endocrine/Metabolic History: Reports: Obesity/BMI 30+ Hematologic History: Reports: Anticoagulation Therapy (Xarelto) Immunologic History: Reports: None Oncologic (Cancer) History: Reports: None Dermatologic History: Reports: None - Infectious Disease History Infectious Disease History: Reports: Chicken Pox - Past Surgical History HEENT Surgical History: Reports: Tonsillectomy Female Surgical History: Reports: Salpingo-Oophorectomy (right only), Tubal Ligation (left only) - SUBSTANCE USE Smoking Status *Q: Never Smoker Second Hand Smoke Exposure: No Recreational Drug Use History: No - HOME MEDS Home Medications: Home Meds Rivaroxaban [Xarelto] 20 mg PO DAILY 05/26/18 [History] - CURRENT (IN HOUSE) MEDS Current Meds: Current Medications Diphenhydramine HCl (Benadryl) 50 mg IVPUSH Q4H PRN PRN Reason: Itching Last Admin: 06/13/18 22:46 Dose: 50 mg Cefazolin Sodium/Dextrose 2 gm (/ Premix) 50 mls @ 100 mls/hr IV ONETIME ONE Stop: 06/14/18 09:44 Sodium Chloride (Normal Saline) 1,000 mls @ 125 mls/hr IV ASDIRECTED KRISH Last Admin: 06/13/18 20:25 Dose: 125 mls/hr Lactated Ringer's (Ringers, Lactated) 1,000 mls @ 125 mls/hr IV ASDIRECTED KRISH Last Admin: 06/14/18 08:16 Dose: 125 mls/hr Lidocaine/Sodium Bicarbonate (Buffered Lidocaine 1% In Ns 8.4%) 0.25 ml IDERM ONETIME PRN PRN Reason: Prior to IV Start Stop: 06/14/18 12:00 Sodium Chloride (Saline Flush) 10 ml FLUSH ASDIRECTED PRN PRN Reason: Keep Vein Open Discontinued Medications Acetaminophen (Tylenol) 650 mg PO ONETIME ONE Stop: 06/13/18 19:31 Last Admin: 06/13/18 20:02 Dose: 650 mg Lactated Ringer's (Ringers, Lactated) 1,000 mls @ 125 mls/hr IV ASDIRECTED PENDING SALE TO [facility] Lidocaine/Epinephrine (Xylocaine 1% With Epinephrine 1:100,000) Confirm Administered Dose 20 ml .ROUTE .STK-MED ONE Stop: 06/14/18 08:32 Sodium Chloride (Normal Saline) Confirm Administered Dose 50 ml .ROUTE .STK-MED ONE Stop: 06/14/18 08:32
--- NOTE | 2018-06-14 09:13 | PCM.PN ---
- General Info Date of Service: 06/14/18 Admission Dx/Problem (Free Text): Admission Diagnosis/Problem Admission Diagnosis/Problem Anemia due to blood loss Subjective Update: Patient doing well overall. Reports minimal vaginal bleeding this morning. Continues to have some lower abdominal cramping. Has been NPO since midnight. Denies any fevers or chills. Denies any nausea or vomiting. Functional Status: Reports: Pain Controlled, Ambulating, Urinating - Review of Systems General: Denies: Fever Pulmonary: Denies: Shortness of Breath, Cough Cardiovascular: Denies: Chest Pain, Palpitations Gastrointestinal: Reports: Abdominal Pain (lower abdominal cramping). Denies: Constipation, Diarrhea, Nausea, Vomiting Genitourinary: Reports: Other (minimal vaginal bleeding). Denies: Dysuria, Burning, Pain, Urgency - Patient Data Vitals - Most Recent: Last Vital Signs Temp 37.2 C 06/14/18 08:37 Pulse 77 06/14/18 08:37 Resp 16 06/14/18 08:37 BP 116/65 06/14/18 08:37 Pulse Ox 96 06/14/18 08:37 Weight - Most Recent: 93.894 kg I&O - Last 24 Hours: Intake & Output 06/13/18 06/14/18 06/14/18 22:59 06:59 14:59 Intake Total 0 2280 Balance 0 2280 Lab Results Last 24 Hours: Laboratory Results - last 24 hr 06/13/18 06/13/18 06/13/18 Range/Units 14:15 14:15 14:15 WBC 8.28 (3.98-10.04) K/mm3 RBC 4.91 (3.98-5.22) M/mm3 Hgb 9.3 L (11.2-15.7) gm/L Hct 33.4 L (34.1-44.9) % MCV 68.0 L (79.4-94.8) fl MCH 18.9 L (25.6-32.2) pg MCHC 27.8 L (32.2-35.5) g/dl RDW Std Deviation 52.0 H (36.4-46.3) fL Plt Count 554 H (182-369) K/mm3 MPV 9.2 L (9.4-12.3) fl Neut % (Auto) 75.7 H (34.0-71.1) % Lymph % (Auto) 17.5 L (19.3-51.7) % [place] % (Auto) 4.7 (4.7-12.5) % Eos % (Auto) 1.7 (0.7-5.8) Baso % (Auto) 0.2 (0.1-1.2) % Neut # (Auto) 6.26 H (1.56-6.13) K/mm3 Lymph # (Auto) 1.45 (1.18-3.74) K/mm3 [place] # (Auto) 0.39 H (0.24-0.36) K/mm3 Eos # (Auto) 0.14 (0.04-0.36) K/mm3 Baso # (Auto) 0.02 (0.01-0.08) K/mm3 Manual Slide Review Abnormal smear PT 11.4 (9.5-12.1) SECONDS INR 1.05 APTT 24 (24-31) SECONDS Sodium 140 (136-145) mEq/L Potassium 3.8 (3.5-5.1) mEq/L Chloride 103 (98-107) mEq/L Carbon Dioxide 24 (21-32) mEq/L Anion Gap 16.8 H (5-15) BUN 8 (7-18) mg/dL Creatinine 0.9 (0.55-1.02) mg/dL Est Cr Clr Drug Dosing TNP Estimated GFR (MDRD) > 60 (>60) mL/min BUN/Creatinine Ratio 8.9 L (14-18) Glucose 118 H (74-106) mg/dL Calcium 9.1 (8.5-10.1) mg/dL Total Bilirubin 0.5 (0.2-1.0) mg/dL AST 16 (15-37) U/L ALT 28 (14-59) U/L Alkaline Phosphatase 69 (46-116) U/L Total Protein 8.1 (6.4-8.2) g/dl Albumin 3.9 (3.4-5.0) g/dl Globulin 4.2 gm/dL Albumin/Globulin Ratio 0.9 L (1-2) Blood Type Gel Antibody Screen Crossmatch 06/13/18 06/13/18 06/14/18 Range/Units 14:15 20:35 07:38 WBC 5.93 (3.98-10.04) K/mm3 RBC 5.02 (3.98-5.22) M/mm3 Hgb 10.3 L (11.2-15.7) gm/L Hct 35.3 (34.1-44.9) % MCV 70.3 L (79.4-94.8) fl MCH 20.5 L (25.6-32.2) pg MCHC 29.2 L (32.2-35.5) g/dl RDW Std Deviation 60.5 H (36.4-46.3) fL Plt Count 429 H (182-369) K/mm3 MPV 8.9 L (9.4-12.3) fl Neut % (Auto) 64.7 (34.0-71.1) % Lymph % (Auto) 25.8 (19.3-51.7) % [place] % (Auto) 6.6 (4.7-12.5) % Eos % (Auto) 2.4 (0.7-5.8) Baso % (Auto) 0.2 (0.1-1.2) % Neut # (Auto) 3.84 (1.56-6.13) K/mm3 Lymph # (Auto) 1.53 (1.18-3.74) K/mm3 [place] # (Auto) 0.39 H (0.24-0.36) K/mm3 Eos # (Auto) 0.14 (0.04-0.36) K/mm3 Baso # (Auto) 0.01 (0.01-0.08) K/mm3 Manual Slide Review Abnormal smear PT (9.5-12.1) SECONDS INR APTT (24-31) SECONDS Sodium (136-145) mEq/L Potassium (3.5-5.1) mEq/L Chloride (98-107) mEq/L Carbon Dioxide (21-32) mEq/L Anion Gap (5-15) BUN (7-18) mg/dL Creatinine (0.55-1.02) mg/dL Est Cr Clr Drug Dosing Estimated GFR (MDRD) (>60) mL/min BUN/Creatinine Ratio (14-18) Glucose (74-106) mg/dL Calcium (8.5-10.1) mg/dL Total Bilirubin (0.2-1.0) mg/dL AST (15-37) U/L ALT (14-59) U/L Alkaline Phosphatase (46-116) U/L Total Protein (6.4-8.2) g/dl Albumin (3.4-5.0) g/dl Globulin gm/dL Albumin/Globulin Ratio (1-2) Blood Type A POSITIVE Cancelled Gel Antibody Screen Negative Cancelled Crossmatch See Detail Med Orders - Current: Current Medications Diphenhydramine HCl (Benadryl) 50 mg IVPUSH Q4H PRN PRN Reason: Itching Last Admin: 06/13/18 22:46 Dose: 50 mg Cefazolin Sodium/Dextrose 2 gm (/ Premix) 50 mls @ 100 mls/hr IV ONETIME ONE Stop: 06/14/18 09:44 Sodium Chloride (Normal Saline) 1,000 mls @ 125 mls/hr IV ASDIRECTED [facility] Last Admin: 06/13/18 20:25 Dose: 125 mls/hr Lactated Ringer's (Ringers, Lactated) 1,000 mls @ 125 mls/hr IV ASDIRECTED [facility] Last Admin: 06/14/18 08:16 Dose: 125 mls/hr Lidocaine/Sodium Bicarbonate (Buffered Lidocaine 1% In Ns 8.4%) 0.25 ml IDERM ONETIME PRN PRN Reason: Prior to IV Start Stop: 06/14/18 12:00 Sodium Chloride (Saline Flush) 10 ml FLUSH ASDIRECTED PRN PRN Reason: Keep Vein Open Discontinued Medications Acetaminophen (Tylenol) 650 mg PO ONETIME ONE Stop: 06/13/18 19:31 Last Admin: 06/13/18 20:02 Dose: 650 mg Lactated Ringer's (Ringers, Lactated) 1,000 mls @ 125 mls/hr IV ASDIRECTED [facility] Lidocaine/Epinephrine (Xylocaine 1% With Epinephrine 1:100,000) Confirm Administered Dose 20 ml .ROUTE .STK-MED ONE Stop: 06/14/18 08:32 Sodium Chloride (Normal Saline) Confirm Administered Dose 50 ml .ROUTE .STK-MED ONE Stop: 06/14/18 08:32 - Exam General: Alert, Oriented HEENT: EOMI Neck: Supple, Trachea Midline Lungs: Clear to Auscultation, Normal Respiratory Effort Cardiovascular: Regular Rate, Regular Rhythm GI/Abdominal Exam: Soft, No Distention, Tender (mild tenderness in lower abdomen ). No: Guarding, Rigid, Rebound Skin: Warm, Dry, Intact Psy/Mental Status: Alert, Normal Affect, Normal Mood - Problem List & Annotations (1) History of pulmonary embolism SNOMED Code(s): 974884530 Code(s): Z86.711 - PERSONAL HISTORY OF PULMONARY EMBOLISM Status: Acute Current Visit: Yes (2) Anemia SNOMED Code(s): 104727904 Code(s): D64.9 - ANEMIA, UNSPECIFIED Status: Acute Current Visit: No (3) Heavy menstrual bleeding SNOMED Code(s): 817607154 Code(s): N92.0 - EXCESSIVE AND FREQUENT MENSTRUATION WITH REGULAR CYCLE Status: Acute Current Visit: No (4) Menstrual cramps SNOMED Code(s): 102981293 Code(s): N94.6 - DYSMENORRHEA, UNSPECIFIED Status: Acute Current Visit: No - Problem List Review Problem List Initiated/Reviewed/Updated: Yes - My Orders Last 24 Hours: My Active Orders 06/13/18 19:09 Patient Status [ADT] Routine Resuscitation Status Routine 06/13/18 19:10 Vital Signs [RC] 21,03,09,15 06/13/18 19:13 Antiembolic Devices [RC] PER UNIT ROUTINE Sequential Compression Device [OM.PC] Per Unit Routine 06/13/18 19:30 diphenhydrAMINE [Benadryl] 50 mg IVPUSH Q4H PRN 06/13/18 20:10 Transfuse RBC [Transfuse Red Blood Cells] [COMM] Stat 06/13/18 20:15 Sodium Chloride 0.9% [Normal Saline] 1,000 ml IV ASDIRECTED 06/14/18 09:15 ceFAZolin [Ancef] 2 gm Premix Bag 1 bag IV ONETIME 06/14/18 Breakfast NPO After Midnight [Nothing per Oral After Midnight Diet] [DIET] - Plan Plan:: * Patient given 2 units packed red blood cell transfusion in preparation for surgery overnight. Hemoglobin of 10.3 this AM after blood transfusion. * Normal saline at 125 ml/hr * Patient nothing by mouth since midnight * Activity as tolerated * SCDs when patient is not up walking around or out of bed * Plan for general anesthesia * Plan for Ancef 2 g IV for antibiotic prophylaxis prior to surgery * Patient to go for hysterectomy this morning * Plan to start on Lovenox 40 mg SQ 2-6 hours after surgery Roberto Lozano M.D. 9:12 AM 06/14/2018
[2018-06-14] MEDS ORDERED: ceFAZolin 2 GM in Premix Bag 1 BAG IV ONE (09:15)
[2018-06-14] MEDS ORDERED: diphenhydrAMINE 50 MG/ML SDV IVPUSH PRN (11:03)
[2018-06-14] MEDS ORDERED: Ondansetron 4 MG/2 ML SDV IVPUSH PRN ×2 (11:03→14:05)
[2018-06-14] MEDS ORDERED: fentaNYL 100 MCG/2 ML SDV IVPUSH PRN (11:03)
[2018-06-14] MEDS ORDERED: HYDROmorphone 0.5 MG/0.5 ML Syringe IVPUSH PRN (11:03)
[2018-06-14] MEDS ORDERED: ePHEDrine 50 MG/ML SDV IVPUSH PRN (11:03)
--- NOTE | 2018-06-14 11:57 | PCM.POSTAN ---
POST ANESTHESIA ASSESSMENT - MENTAL STATUS Mental Status: Alert, Oriented - VITAL SIGNS Pulse Rate: 80 SaO2: 96 Resp Rate: 16 Blood Pressure: 133/63 Temperature: 37.0 C - RESPIRATORY Respiratory Status: Respiratory Rate WNL, Airway Patent, O2 Saturation Stable, Supplemental Oxygen - CARDIOVASCULAR CV Status: Pulse Rate WNL, Blood Pressure Stable - GASTROINTESTINAL GI Status: No Symptoms - POST OP HYDRATION Hydration Status: Adequate & Stable
--- NOTE | 2018-06-14 12:05 | PCM.OPNOTE ---
- General Post-Op/Procedure Note Date of Surgery/Procedure: 06/14/18 Operative Procedure(s): Total vaginal hysterectomy with left salpingo- oophorectomy Findings: Grossly normal-appearing cervix, uterus and left fallopian tube. Left fallopian tube with surgical disruption from previous tubal ligation. Left ovary with a 4 cm simple appearing cyst with clear fluid inside. Pre Op Diagnosis: Menorrhagia with dysmenorrhea on anticoagulation therapy Post-Op Diagnosis: Same Anesthesia Technique: General ET Tube Primary Surgeon: Roberto Lozano Anesthesia Provider: Homa Mcallister Shank Carrier: Rudy Gil Shank Carrier: Mark Aiken ([employer] student) Reason Shank Carrier Was Necessary: Patient safety and reduction of morbidity and mortality Role of Shank Carrier: Retraction for visualization during surgical procedure Pathology: Cervix, uterus, left tube and left ovary Fluid Replacement, Intraop: 2,000 Output, Urine Amount: 400 EBL in mLs: 325 Complications: None Condition: Good Free Text/Narrative:: Intake & Output 06/13/18 06/14/18 06/14/18 22:59 06:59 14:59 Intake Total 0 2280 Balance 0 2280 Time of procedure: 72 minutes Procedure in detail: The patient was seen in the preoperative holding area and risks, benefits, indications, and alternatives of the procedure were reviewed with the patient and she desired to proceed with a total vaginal hysterectomy and left salpingo-oophorectomy. Consents were signed. The patient was given general anesthesia with an endotracheal tube that was placed without difficulty. The patient was placed in dorsal lithotomy position , prepped, and draped in normal sterile fashion. A weighted speculum was placed into the vagina and the anterior lip of the cervix was grasped with the single-tooth tenaculum. A second single-tooth tenaculum was used to grasp the entirety of the cervix. The cervix was injected circumferentially with 0.25% lidocaine with epinephrine. The cervix was circumferentially incised with a scalpel. The bladder was dissected off the pubovesical cervical fascia anteriorly with Asles scissors. The posterior cul-de-sac was entered sharply without difficulty using Sales scissors. The anterior cul-de-sac was then able to be entered using sharp dissection with Sales scissors. An Enseal vessel sealing device was placed over the uterosacral ligaments on the patient's left side. These were cauterized and ligated with the Enseal vessel sealing device. This was repeated on the patient's right side. Hemostasis was assured. The cardinal ligaments were then clamped on both sides with Enseal vessel sealing device, cauterized and ligated with the device. The uterine arteries and broad ligament were then serially clamped with Enseal vessel sealing device, cauterized and ligated with the device on both sides. Excellent hemostasis was visualized at this time. The cornua were clamped bilaterally with Barrington clamp , cut and suture ligated with 0 Monocryl, and the uterus delivered. These pedicles were noted to have good hemostasis. There was noted to be some bleeding from the left fallopian tube at this time. The left fallopian tube and ovary was then visualized and grasped using a [place] clamp and clamped using Barrington clamp across the ovarian ligament, cut and suture ligated with 0 Monocryl suture. Hemostasis was noted at this time. The posterior vaginal cuff was closed with running locked sutures of 0-Monocryl. The vaginal cuff was closed with running locked stitches in a horizontal fashion with 0-Monocryl. Hemostasis was again noted. All instruments were removed from the vagina. The patient was awoken and taken to the PACU for recovery in stable condition. Sponge, lap, needle, and instrument counts were correct x 2.
[2018-06-14] MEDS ORDERED: Enoxaparin 40 MG/0.4 ML Syringe SUBCUT ONE (13:55)
[2018-06-14] MEDS ORDERED: Acetaminophen/oxyCODONE 325-5 MG Tab PO PRN ×2 (14:05)
[2018-06-14] MEDS ORDERED: Magnesium Hydroxide 400 MG/5 ML Susp 30 ML Cup PO PRN (14:05)
[2018-06-14] MEDS: Ketorolac 15 MG/ML SDV IVPUSH SCH (18:47)
[2018-06-14] MEDS: Docusate Sodium 100 MG Cap PO SCH (20:13)
[2018-06-15] MEDS: Ketorolac 15 MG/ML SDV IVPUSH SCH ×2 (00:29→05:17)
[2018-06-15] MEDS: Ibuprofen 600 MG Tab PO PRN ×2 (00:46→06:40)
--- NOTE | 2018-06-15 08:23 | PCM.SN ---
- Free Text/Narrative Note: Post Op Note Subjective: Patient reports feeling well overall. Pain minimal and controlled with oral medications. Tolerating regular diet without nausea or vomiting. Reports passing flatus and had a bowel movement this morning. Reports minimal difficulty with the bowel movement. Voiding without difficulty but reports some mild pain after voiding. Ambulating without difficulty. Objective: Vitals Vital Signs - 24 hr 06/14/18 06/14/18 06/14/18 08:37 11:47 11:57 Temperature 37.2 C 37.0 C Temperature [ 37.0 C Temporal] Pulse, 77 80 Peripheral Respiratory 16 16 16 Rate Blood Pressure 116/65 133/63 Blood Pressure 133/63 [Right Upper Arm] O2 Sat by Pulse 96 93 L 96 Oximetry O2 Sat by Pulse Oximetry [ Nasal Cannula] O2 Sat by Pulse 96 Oximetry [ Simple Mask] 06/14/18 06/14/18 06/14/18 12:00 12:13 12:15 Temperature Temperature [ Temporal] Pulse, Peripheral Respiratory 17 18 Rate Blood Pressure Blood Pressure 116/72 128/68 [Right Upper Arm] O2 Sat by Pulse 98 92 L Oximetry O2 Sat by Pulse 98 Oximetry [ Nasal Cannula] O2 Sat by Pulse Oximetry [ Simple Mask] 06/14/18 06/14/18 06/14/18 12:30 12:45 12:55 Temperature Temperature [ 36.6 C Temporal] Pulse, Peripheral Respiratory 15 14 16 Rate Blood Pressure Blood Pressure 122/65 123/84 115/69 [Right Upper Arm] O2 Sat by Pulse 93 L 94 L 92 L Oximetry O2 Sat by Pulse Oximetry [ Nasal Cannula] O2 Sat by Pulse Oximetry [ Simple Mask] 06/14/18 06/14/18 06/14/18 13:06 13:25 13:38 Temperature 36.7 C Temperature [ Temporal] Pulse, 80 89 87 Peripheral Respiratory 16 Rate Blood Pressure 123/67 113/75 117/69 Blood Pressure [Right Upper Arm] O2 Sat by Pulse 94 L 94 L 88 L Oximetry O2 Sat by Pulse Oximetry [ Nasal Cannula] O2 Sat by Pulse Oximetry [ Simple Mask] 06/14/18 06/14/18 06/14/18 13:39 14:40 14:41 Temperature 36.6 C 36.7 C Temperature [ Temporal] Pulse, 78 90 Peripheral Respiratory 17 16 Rate Blood Pressure 117/69 107/66 Blood Pressure [Right Upper Arm] O2 Sat by Pulse 92 L 97 Oximetry O2 Sat by Pulse 97 Oximetry [ Nasal Cannula] O2 Sat by Pulse Oximetry [ Simple Mask] 06/14/18 06/14/18 06/14/18 15:40 15:51 16:41 Temperature Temperature [ 36.9 C Temporal] Pulse, 82 107 H Peripheral Respiratory Rate Blood Pressure Blood Pressure [Right Upper Arm] O2 Sat by Pulse 93 L 95 Oximetry O2 Sat by Pulse Oximetry [ Nasal Cannula] O2 Sat by Pulse Oximetry [ Simple Mask] 06/14/18 06/15/18 06/15/18 20:12 00:51 04:20 Temperature 36.5 C 36.3 C 36.9 C Temperature [ Temporal] Pulse, 92 95 76 Peripheral Respiratory 16 14 14 Rate Blood Pressure 108/79 111/69 108/86 Blood Pressure [Right Upper Arm] O2 Sat by Pulse 93 L 96 97 Oximetry O2 Sat by Pulse Oximetry [ Nasal Cannula] O2 Sat by Pulse Oximetry [ Simple Mask] I/O: Intake & Output 06/13/18 06/14/18 06/15/18 06/16/18 06:59 06:59 06:59 06:59 Intake Total 2280 3500 Output Total 2300 Balance 2280 1200 Gen: No acute distress, alert and oriented Lungs: Clear to auscultation bilaterally Heart: Regular rate and rhythm Abdomen: Soft, minimal appropriate tenderness, nondistended, bowel sounds positive Pelvic: No bleeding present on viral-pad Assesment/Plan: 38-year-old with abnormal uterine bleeding, menorrhagia and dysmenorrhea while on anticoagulation therapy status post total vaginal hysterectomy with left salpingo-oophorectomy POD #1 Doing well No concerns at this time Routine post op care Monitor vitals. Vitals normal at this time. Hemoglobin down to 9.0 this morning which is appropriate given blood loss in surgery. Plan is to repeat CBC tomorrow as outpatient. Anticipate discharge home today Roberto Lozano MD 8:22 AM 06/15/2018
--- NOTE | 2018-06-15 08:32 | PCM.DCSUM1 ---
Discharge Summary - Hospital Course Free Text/Narrative:: Time of procedure: 72 minutes Procedure in detail: The patient was seen in the preoperative holding area and risks, benefits, indications, and alternatives of the procedure were reviewed with the patient and she desired to proceed with a total vaginal hysterectomy and left salpingo-oophorectomy. Consents were signed. The patient was given general anesthesia with an endotracheal tube that was placed without difficulty. The patient was placed in dorsal lithotomy position , prepped, and draped in normal sterile fashion. A weighted speculum was placed into the vagina and the anterior lip of the cervix was grasped with the single-tooth tenaculum. A second single-tooth tenaculum was used to grasp the entirety of the cervix. The cervix was injected circumferentially with 0.25% lidocaine with epinephrine. The cervix was circumferentially incised with a scalpel. The bladder was dissected off the pubovesical cervical fascia anteriorly with Sales scissors. The posterior cul-de-sac was entered sharply without difficulty using Sales scissors. The anterior cul-de-sac was then able to be entered using sharp dissection with Sales scissors. An Enseal vessel sealing device was placed over the uterosacral ligaments on the patient's left side. These were cauterized and ligated with the Enseal vessel sealing device. This was repeated on the patient's right side. Hemostasis was assured. The cardinal ligaments were then clamped on both sides with Enseal vessel sealing device, cauterized and ligated with the device. The uterine arteries and broad ligament were then serially clamped with Enseal vessel sealing device, cauterized and ligated with the device on both sides. Excellent hemostasis was visualized at this time. The cornua were clamped bilaterally with Barrington clamp , cut and suture ligated with 0 Monocryl, and the uterus delivered. These pedicles were noted to have good hemostasis. There was noted to be some bleeding from the left fallopian tube at this time. The left fallopian tube and ovary was then visualized and grasped using a Loris clamp and clamped using Barrington clamp across the ovarian ligament, cut and suture ligated with 0 Monocryl suture. Hemostasis was noted at this time. The posterior vaginal cuff was closed with running locked sutures of 0-Monocryl. The vaginal cuff was closed with running locked stitches in a horizontal fashion with 0-Monocryl. Hemostasis was again noted. All instruments were removed from the vagina. The patient was awoken and taken to the PACU for recovery in stable condition. Sponge, lap, needle, and instrument counts were correct x 2. HPI Initial Comments: Time of procedure: 72 minutes Procedure in detail: The patient was seen in the preoperative holding area and risks, benefits, indications, and alternatives of the procedure were reviewed with the patient and she desired to proceed with a total vaginal hysterectomy and left salpingo-oophorectomy. Consents were signed. The patient was given general anesthesia with an endotracheal tube that was placed without difficulty. The patient was placed in dorsal lithotomy position , prepped, and draped in normal sterile fashion. A weighted speculum was placed into the vagina and the anterior lip of the cervix was grasped with the single-tooth tenaculum. A second single-tooth tenaculum was used to grasp the entirety of the cervix. The cervix was injected circumferentially with 0.25% lidocaine with epinephrine. The cervix was circumferentially incised with a scalpel. The bladder was dissected off the pubovesical cervical fascia anteriorly with Sales scissors. The posterior cul-de-sac was entered sharply without difficulty using Sales scissors. The anterior cul-de-sac was then able to be entered using sharp dissection with Sales scissors. An Enseal vessel sealing device was placed over the uterosacral ligaments on the patient's left side. These were cauterized and ligated with the Enseal vessel sealing device. This was repeated on the patient's right side. Hemostasis was assured. The cardinal ligaments were then clamped on both sides with Enseal vessel sealing device, cauterized and ligated with the device. The uterine arteries and broad ligament were then serially clamped with Enseal vessel sealing device, cauterized and ligated with the device on both sides. Excellent hemostasis was visualized at this time. The cornua were clamped bilaterally with Barrington clamp , cut and suture ligated with 0 Monocryl, and the uterus delivered. These pedicles were noted to have good hemostasis. There was noted to be some bleeding from the left fallopian tube at this time. The left fallopian tube and ovary was then visualized and grasped using a Loris clamp and clamped using Barrington clamp across the ovarian ligament, cut and suture ligated with 0 Monocryl suture. Hemostasis was noted at this time. The posterior vaginal cuff was closed with running locked sutures of 0-Monocryl. The vaginal cuff was closed with running locked stitches in a horizontal fashion with 0-Monocryl. Hemostasis was again noted. All instruments were removed from the vagina. The patient was awoken and taken to the PACU for recovery in stable condition. Sponge, lap, needle, and instrument counts were correct x 2. Brief History: Time of procedure: 72 minutes. Procedure in detail: The patient was seen in the preoperative holding area and risks, benefits, indications, and alternatives of the procedure were reviewed with the patient and she desired to proceed with a total vaginal hysterectomy and left salpingo-oophorectomy. Consents were signed. The patient was given general anesthesia with an endotracheal tube that was placed without difficulty. The patient was placed in dorsal lithotomy position, prepped, and draped in normal sterile fashion. A weighted speculum was placed into the vagina and the anterior lip of the cervix was grasped with the single-tooth tenaculum. A second single-tooth tenaculum was used to grasp the entirety of the cervix. The cervix was injected circumferentially with 0.25% lidocaine with epinephrine. The cervix was circumferentially incised with a scalpel. The bladder was dissected off the pubovesical cervical fascia anteriorly with Sales scissors. The posterior cul-de -sac was entered sharply without difficulty using Sales scissors. The anterior cul-de-sac was then able to be entered using sharp dissection with Sales scissors. An Enseal vessel sealing device was placed over the uterosacral ligaments on the patient's left side. These were cauterized and ligated with the Enseal vessel sealing device. This was repeated on the patient's right side. Hemostasis was assured. The cardinal ligaments were then clamped on both sides with Enseal vessel sealing device, cauterized and ligated with the device. The uterine arteries and broad ligament were then serially clamped with Enseal vessel sealing device, cauterized and ligated with the device on both sides. Excellent hemostasis was visualized at this time. The cornua were clamped bilaterally with Barrington clamp, cut and suture ligated with 0 Monocryl, and the uterus delivered. These pedicles were noted to have good hemostasis. There was noted to be some bleeding from the left fallopian tube at this time. The left fallopian tube and ovary was then visualized and grasped using a Loris clamp and clamped using Barrington clamp across the ovarian ligament, cut and suture ligated with 0 Monocryl suture. Hemostasis was noted at this time. The posterior vaginal cuff was closed with running locked sutures of 0- Monocryl. The vaginal cuff was closed with running locked stitches in a horizontal fashion with 0-Monocryl. Hemostasis was again noted. All instruments were removed from the vagina. The patient was awoken and taken to the PACU for recovery in stable condition. Sponge, lap, needle, and instrument counts were correct x 2. Diagnosis: Stroke: No - Discharge Data Discharge Date: 06/15/18 Discharge Disposition: Home, Self-Care 01 Condition: Good - Discharge Diagnosis/Problem(s) (1) History of pulmonary embolism SNOMED Code(s): 074902815 ICD Code: Z86.711 - PERSONAL HISTORY OF PULMONARY EMBOLISM Status: Acute Current Visit: Yes (2) Anemia SNOMED Code(s): 619780880 ICD Code: D64.9 - ANEMIA, UNSPECIFIED Status: Acute Current Visit: No (3) Heavy menstrual bleeding SNOMED Code(s): 133571934 ICD Code: N92.0 - EXCESSIVE AND FREQUENT MENSTRUATION WITH REGULAR CYCLE Status: Acute Current Visit: No (4) Menstrual cramps SNOMED Code(s): 239266630 ICD Code: N94.6 - DYSMENORRHEA, UNSPECIFIED Status: Acute Current Visit: No (5) S/P vaginal hysterectomy SNOMED Code(s): 547734362, 229806756 ICD Code: Z90.710 - ACQUIRED ABSENCE OF BOTH CERVIX AND UTERUS Status: Acute Current Visit: Yes - Patient Summary/Data Operative Procedure(s) Performed: Total vaginal hysterectomy with left salpingo- oophorectomy Complications: Pre-operative blood transfusion due to acute blood loss anemia while on anticoagulation therapy Recommended Follow-up Testing/Procedures: CBC and BMP on POD #2 as outpatient Hospital Course: Patient was admitted for preoperative management of her acute blood loss anemia due to abnormal uterine bleeding with menorrhagia and blood clots while on anticoagulation therapy. Her hemoglobin in the clinic with her PCP, Shawnee Jacobs, was 8.6 but in the hospital was 9.6. She was typed and crossmatched for 2 units of blood and was given both units for blood transfusion in preparation for her planned surgery. On hospital day #2 her hemoglobin in the morning prior to her procedure after the blood transfusion was 10.3. This was felt to be an appropriate level to proceed with the surgical procedure. On hospital day #2 she underwent a total vaginal hysterectomy with left salpingo- oophorectomy. The procedure was overall uncomplicated and she had 325 mL of blood loss during the procedure. Please see the procedure note for full details. She was monitored closely for bleeding after the procedure and at 2.5 hours after the procedure she was noted to have minimal amount of bleeding. She was given Lovenox 40 mg subcutaneous for DVT and PE prophylaxis given significant history of DVT and PE. Her CBC at 6 hours after the procedure on day of surgery came back at 10.6. Her bleeding continued to be minimal at this time. She was started on ibuprofen 600 mg every 6 hours for additional pain management in addition to her Percocet 1-2 tabs every 6 hours at this time. She was overall doing well at this time frame and was getting up and walking around and was able to void. In the morning of postoperative day #1 she was doing very well overall. She reports that she was ambulating without difficulty. She was able to sit up and perform her daily activities. She was tolerating a regular diet without any nausea or vomiting. She reports that she has only minimal amount of spotting from vaginal bleeding. She was passing flatus and had a bowel movement with minimal difficulty. She reported only mild tenderness after voiding. She desired to be discharged in the morning of postoperative day #1. Patient was felt to be stable for discharge on postoperative day #1. She is to restart her Xarelto 20 mg today for continued anticoagulation management of her history of PE and DVTs. She will follow-up in the clinic in 1-2 weeks for routine postoperative appointment. She will get a CBC and BMP as an outpatient on postoperative day #2. - Patient Instructions Diet: Regular Diet as Tolerated Activity: Apply Ice, As Tolerated, No Lifting Over 25 Pounds Activity, Other: Nothing in the vagina for 6 week Driving: Do Not Drive (While on narcotic medications or unable to react settling into traffic conditions.) Showering/Bathing: May Shower, No Tub Bathing/Swimming (For 1 week) Notify Provider of: Fever, Increased Pain, Swelling and Redness, Drainage, Nausea and/or Vomiting Other/Special Instructions: Please contact Dr. Lozano's office if you have heavy vaginal bleeding enough to soak a pad in less than an hour. Monitor for any signs of significant bleeding including severe abdominal or pelvic pain, shortness of breath, chest pain or bleeding onto your pad. - Discharge Plan *PRESCRIPTION DRUG MONITORING PROGRAM REVIEWED*: Yes *COPY OF PRESCRIPTION DRUG MONITORING REPORT IN PATIENT JANETH: Yes Prescriptions/Med Rec: Acetaminophen/oxyCODONE [Percocet 325-5 MG] 1 - 2 tab PO Q6H PRN #30 tablet PRN Reason: Pain Home Medications: Home Meds Rivaroxaban [Xarelto] 20 mg PO DAILY 05/26/18 [History] Acetaminophen/oxyCODONE [Percocet 325-5 MG] 1 - 2 tab PO Q6H PRN #30 tablet [Rx] Docusate Sodium [Colace] 100 mg PO BID cap 06/15/18 [Rx] Ibuprofen [Motrin] 600 mg PO Q6H PRN tablet 06/15/18 [Rx] Patient Handouts: Hysterectomy Information, Vaginal Hysterectomy, Care After Referrals: Roberto Lozano MD [Primary Care Provider] - (Follow-up in 1-2 weeks for routine postop appointment or earlier as needed. Please return to the clinic lab tomorrow for CBC and BMP.) - Discharge Summary/Plan Comment DC Time >30 min.: No - Patient Data Vitals - Most Recent: Last Vital Signs Temp 36.9 C 06/15/18 04:20 Pulse 76 06/15/18 04:20 Resp 14 06/15/18 04:20 BP 108/86 06/15/18 04:20 Pulse Ox 97 06/15/18 04:20 Weight - Most Recent: 93.894 kg I&O - Last 24 hours: Intake & Output 06/14/18 06/15/18 06/15/18 22:59 06:59 14:59 Intake Total 1080 Output Total 1500 Balance -420 Lab Results - Last 24 hrs: Laboratory Results - last 24 hr 06/14/18 06/15/18 Range/Units 17:35 05:55 WBC 12.83 H 9.15 (3.98-10.04) K/mm3 RBC 5.16 4.33 (3.98-5.22) M/mm3 Hgb 10.6 L 9.0 L (11.2-15.7) gm/L Hct 36.0 31.0 L (34.1-44.9) % MCV 69.8 L 71.6 L (79.4-94.8) fl MCH 20.5 L 20.8 L (25.6-32.2) pg MCHC 29.4 L 29.0 L (32.2-35.5) g/dl RDW Std Deviation 59.4 H 62.1 H (36.4-46.3) fL Plt Count 447 H 369 (182-369) K/mm3 MPV 9.1 L 9.4 (9.4-12.3) fl Neut % (Auto) 93.4 H 72.0 H (34.0-71.1) % Lymph % (Auto) 5.5 L 19.5 (19.3-51.7) % [place] % (Auto) 0.9 L 8.0 (4.7-12.5) % Eos % (Auto) 0 L 0.3 L (0.7-5.8) Baso % (Auto) 0.0 L 0.1 (0.1-1.2) % Neut # (Auto) 12.00 H 6.59 H (1.56-6.13) K/mm3 Lymph # (Auto) 0.70 L 1.78 (1.18-3.74) K/mm3 [place] # (Auto) 0.11 L 0.73 H (0.24-0.36) K/mm3 Eos # (Auto) 0.00 L 0.03 L (0.04-0.36) K/mm3 Baso # (Auto) 0.00 L 0.01 (0.01-0.08) K/mm3 Manual Slide Review Abnormal smear Abnormal smear Med Orders - Current: Current Medications Docusate Sodium (Colace) 100 mg PO BID KRISH Last Admin: 06/14/18 20:13 Dose: 100 mg Ibuprofen (Motrin) 600 mg PO Q6H PRN PRN Reason: Pain Last Admin: 06/15/18 06:40 Dose: 600 mg Magnesium Hydroxide (Milk Of Magnesia) 30 ml PO BID PRN PRN Reason: Constipation Ondansetron HCl (Zofran) 4 mg IVPUSH Q4H PRN PRN Reason: Nausea/Vomiting Oxycodone/Acetaminophen (Percocet 325-5 Mg) 1 tab PO Q6H PRN PRN Reason: Pain (moderate 4-6) Oxycodone/Acetaminophen (Percocet 325-5 Mg) 2 tab PO Q6H PRN PRN Reason: Pain (severe 7-10) Last Admin: 06/14/18 16:57 Dose: 2 tab Pantoprazole Sodium (Protonix) 40 mg PO DAILY KRISH Discontinued Medications Acetaminophen (Tylenol) 650 mg PO ONETIME ONE Stop: 06/13/18 19:31 Last Admin: 06/13/18 20:02 Dose: 650 mg Diphenhydramine HCl (Benadryl) 50 mg IVPUSH Q4H PRN PRN Reason: Itching Last Admin: 06/13/18 22:46 Dose: 50 mg Diphenhydramine HCl (Benadryl) 25 mg IVPUSH Q6H PRN PRN Reason: Pruritis Enoxaparin Sodium (Lovenox) 40 mg SUBCUT ONETIME ONE Stop: 06/14/18 13:56 Last Admin: 06/14/18 14:38 Dose: 40 mg Ephedrine Sulfate (Ephedrine Sulfate) 5 mg IVPUSH ASDIRECTED PRN PRN Reason: Hypotension Fentanyl (Sublimaze) 50 mcg IVPUSH Q5M PRN PRN Reason: Pain Last Admin: 06/14/18 12:38 Dose: 50 mcg Hydromorphone HCl (Dilaudid) 0.5 mg IVPUSH Q15M PRN PRN Reason: severe pain Last Admin: 06/14/18 12:24 Dose: 0.5 mg Cefazolin Sodium/Dextrose 2 gm (/ Premix) 50 mls @ 100 mls/hr IV ONETIME ONE Stop: 06/14/18 09:44 Lactated Ringer's (Ringers, Lactated) 1,000 mls @ 125 mls/hr IV ASDIRECTED KRISH Sodium Chloride (Normal Saline) 1,000 mls @ 125 mls/hr IV ASDIRECTED KRISH Last Admin: 06/13/18 20:25 Dose: 125 mls/hr Lactated Ringer's (Ringers, Lactated) 1,000 mls @ 125 mls/hr IV ASDIRECTED KRISH Last Admin: 06/14/18 12:02 Dose: 125 mls/hr Ketorolac Tromethamine (Toradol) 15 mg IVPUSH Q6H [facility] Stop: 06/15/18 12:31 Last Admin: 06/15/18 05:17 Dose: Not Given Lidocaine/Epinephrine (Xylocaine 1% With Epinephrine 1:100,000) Confirm Administered Dose 20 ml .ROUTE .STK-MED ONE Stop: 06/14/18 08:32 Last Admin: 06/14/18 10:15 Dose: 5 ml Lidocaine/Sodium Bicarbonate (Buffered Lidocaine 1% In Ns 8.4%) 0.25 ml IDERM ONETIME PRN PRN Reason: Prior to IV Start Stop: 06/14/18 12:00 Ondansetron HCl (Zofran) 4 mg IVPUSH ONETIME PRN PRN Reason: Nausea/Vomiting Sodium Chloride (Saline Flush) 10 ml FLUSH ASDIRECTED PRN PRN Reason: Keep Vein Open Sodium Chloride (Normal Saline) Confirm Administered Dose 50 ml .ROUTE .STK-MED ONE Stop: 06/14/18 08:32 Last Admin: 06/14/18 10:15 Dose: 15 ml *Q Meaningful Use (DIS) - VTE *Q VTE Pharmacological Contraindications *Q: Patient Scheduled Surgery
[2018-06-15] MEDS ORDERED: Pantoprazole 40 MG Tab.CR PO SCH (09:00)
[2018-06-15] MEDS: Docusate Sodium 100 MG Cap PO SCH (09:28)
[2018-06-15 12:00] VITALS: BP 128/82
== END 2018-06-15 10:00 | disposition home or self-care (01) | DRG 513 ==
LOC: JD.WOMH 14:14 → JD.OB 14:14
PROVIDERS: ADMIT Obstetrics & Gynecology; ATTEND Obstetrics & Gynecology
PROC: 30233N1 Transfusion of Nonautologous Red Blood Cells into Peripheral Vein, Percutaneous Approach (ICD-10-PCS; 2018-06-13)
PROC: 0UT17ZZ Resection of Left Ovary, Via Natural or Artificial Opening (ICD-10-PCS; principal; 2018-06-14)
PROC: 0UT67ZZ Resection of Left Fallopian Tube, Via Natural or Artificial Opening (ICD-10-PCS; principal; 2018-06-14)
PROC: 0UT97ZZ Resection of Uterus, Via Natural or Artificial Opening (ICD-10-PCS; principal; 2018-06-14)
DX: N92.0 Excessive and frequent menstruation with regular cycle (principal); E66.9 Obesity, unspecified; Z68.35 Body mass index [BMI] 35.0-35.9, adult; N94.6 Dysmenorrhea, unspecified; N93.9 Abnormal uterine and vaginal bleeding, unspecified; D62 Acute posthemorrhagic anemia; H54.7 Unspecified visual loss; K21.9 Gastro-esophageal reflux disease without esophagitis; G93.2 Benign intracranial hypertension; R10.2 Pelvic and perineal pain; R20.0 Anesthesia of skin; Z87.891 Personal history of nicotine dependence; Z79.01 Long term (current) use of anticoagulants; Z86.718 Personal history of other venous thrombosis and embolism; Z91.011 Allergy to milk products; Z91.018 Allergy to other foods; Z88.5 Allergy status to narcotic agent; Z88.2 Allergy status to sulfonamides; Z79.899 Other long term (current) drug therapy; Z86.711 Personal history of pulmonary embolism
CPT/HCPCS: 00944; 36415; 36430; 80053; 85025; 85610; 85730; 86850; 86900; 86901; 86922; A9270-GY; J1170; J1200; J1650; J1885; J3010; J7040; J7120; P9016

== ENCOUNTER 2018-06-30 20:30 | Emergency (ER) | payer BC ==
[2018-06-30 20:52] VITALS: BP 137/88
--- NOTE | 2018-06-30 21:09 | EDM.PDOC ---
ED HPI GENERAL MEDICAL PROBLEM - General Chief Complaint: Respiratory Problem Stated Complaint: LEFT SIDE PAIN/WORRIED SHE MAY HAVE ANOTHER PE Time Seen by Provider: 06/30/18 20:51 Source of Information: Reports: Patient, RN Notes Reviewed History Limitations: Reports: No Limitations - History of Present Illness INITIAL COMMENTS - FREE TEXT/NARRATIVE: The patient states that she developed shortness of breath and pleuritic left- sided chest pain around 17:00 this evening. No palpitations. She states that her pain is felt under her left breast, at approximately the 6th intercostal space, left anterior axillary line. She states that her current symptoms are exactly the same as when she suffered a pulmonary embolus in October 2017, although at that time she had lower extremity discomfort, which she does not have today. The patient was found to have a DVT in July 2014, and was treated with Coumadin for 6 months. She was then found to have a pulmonary embolus in December 2017, has been on Xarelto since. She states that a hypercoagulable workup, performed at [facility] this past January 2018, was negative. The patient states that she underwent a hysterectomy on 06/14/2017, and that her Xarelto was held from 06/10/2018, and resumed on 06/15/2018, however, her Xarelto was resumed at her usual dosage of 20 mg daily, not at a starting dose of 15 mg twice daily. The patient also reports that she was started on Flagyl 500 mg BID yesterday, for treatment of bacterial vaginosis that was diagnosed on 06/28/2018. The patient's PCP is Shawnee Jacobs. Her Workers Compensation Analyst is Dr. Christian, however, her recent hysterectomy was performed by Dr. Lozano. Left Chest Pain Score (Numeric/FACES): 9 - Related Data Allergies Allergy/AdvReac Type Severity Reaction Status Date / Time codeine Allergy Hives Verified 06/30/18 20:52 Sulfa (Sulfonamide Allergy Hives Verified 06/30/18 20:52 Antibiotics) Home Meds: Home Meds Rivaroxaban [Xarelto] 20 mg PO DAILY 05/26/18 [History] Past Medical History HEENT History: Reports: Impaired Vision Other HEENT History: wears glasses Cardiovascular History: Reports: Blood Clots/VTE/DVT (July 2014) Respiratory History: Reports: PE (October 2017) Gastrointestinal History: Reports: GERD : 7 Para: 7 Musculoskeletal History: Reports: Fracture (left foot) Neurological History: Reports: Other (See Below) (Pseudotumor cerebri) Endocrine/Metabolic History: Reports: Obesity/BMI 30+ Hematologic History: Reports: Anticoagulation Therapy (Xarelto) - Infectious Disease History Infectious Disease History: Reports: Chicken Pox - Past Surgical History HEENT Surgical History: Reports: Tonsillectomy Female Surgical History: Reports: Hysterectomy (vaginal, 06/14/2018), Salpingo -Oophorectomy (bilateral), Tubal Ligation (left only) Social & Family History - Family History Family Medical History: Noncontributory - Tobacco Use Smoking Status *Q: Never Smoker - Caffeine Use Caffeine Use: Reports: Coffee, Soda Other Caffeine Use: 1-2 paulie 3 times per week - Alcohol Use Alcohol Use History: Yes Alcohol Use Frequency: Rarely - Recreational Drug Use Recreational Drug Use: No - Living Situation & Occupation Living situation: Reports: , with Spouse, with Family (7 kids) Occupation: Unemployed ED ROS GENERAL - Review of Systems Review Of Systems: ROS reveals no pertinent complaints other than HPI. ED EXAM, GENERAL - Physical Exam Exam: See Below Exam Limited By: No Limitations General Appearance: Alert, WD/WN, No Apparent Distress Eye Exam: Bilateral Eye: EOMI, Normal Inspection Ears: Normal External Exam, Hearing Grossly Normal Nose: Normal Inspection Throat/Mouth: Normal Inspection, Normal Lips, Normal Voice, No Airway Compromise Head: Atraumatic, Normocephalic Neck: Normal Inspection, Full Range of Motion Respiratory/Chest: No Respiratory Distress, Lungs Clear, Normal Breath Sounds, No Accessory Muscle Use, Chest Non-Tender (including to the area of pain, 6th intercostal space, left anterior axillary line). No: Decreased Breath Sounds, Crackles, Rhonchi, Wheezing, Pleural Rub, Prolonged Expiration Cardiovascular: Normal Peripheral Pulses, Regular Rate, Rhythm, No Gallop, No JVD, No Murmur, No Rub Peripheral Pulses: 4+: Radial (L), Radial (R) GI/Abdominal: Normal Bowel Sounds, Soft, Non-Tender, No Organomegaly, No Distention, No Abnormal Bruit, No Mass, Other (Obese) (Female) Exam: Deferred Rectal (Female) Exam: Deferred Back Exam: Normal Inspection, Full Range of Motion. No: CVA Tenderness (L), CVA Tenderness (R) Extremities: Normal Inspection, Normal Range of Motion, No Pedal Edema, Normal Capillary Refill Neurological: Alert, Oriented, Normal Cognition, No Motor/Sensory Deficits Psychiatric: Normal Affect Skin Exam: Warm, Dry, Intact, Normal Color, No Rash Course - Vital Signs Last Recorded V/S: Last Vital Signs Temp 36.8 C 06/30/18 20:49 Pulse 96 06/30/18 20:49 Resp 22 H 06/30/18 20:49 BP 137/88 06/30/18 20:49 Pulse Ox 100 06/30/18 20:49 - Orders/Labs/Meds Orders: Active Orders 24 hr Category Date Time Status Incentive Spirometry [RT Incentive Spirometry] [RC] Care 06/30/18 22:45 Active ASDIRECTED Ang Chest [CT] Stat Exams 06/30/18 21:05 Taken Meds: Medications Discontinued Medications Generic Name Dose Route Start Last Admin Trade Name Freq PRN Reason Stop Dose Admin Sodium Chloride 1,000 mls @ 150 mls/hr 06/30/18 21:15 06/30/18 21:31 Normal Saline IV 150 mls/hr ASDIRECTED KRISH Administration - Re-Assessments/Exams Free Text/Narrative Re-Assessment/Exam: 06/30/18 21:07 The patient's Xarelto was held from approximately 06/10/2018 through 06/15/2018, effectively rendering her Xarelto level to 0. When it was restarted, it was restarted at her usual dose of 20 mg daily, however, this may have resulted in an inadequate dose of Xarelto, as it is usually started at 15 mg BID 3 weeks before it is reduced to 20 mg daily. While a hypercoagulable workup in January , performed at [facility], was negative, the patient appears to have a hypercoagulable condition, as she has suffered a DVT in 2015 and a PE in 2018. The patient is therefore at an increased risk for developing a DVT and PE following her most recent surgery. As the patient is already back on Xarelto, checking coags would be meaningless, and because she just recently had surgery, a D-dimer would be likewise be meaningless, as well. I therefore have no choice but to order a CT abdomen with the chest to evaluate for a PE. The patient's renal function was normal on 06/23/2018; I don't see a need to recheck it tonight. She will receive IV fluid. 06/30/18 22:39 CT angiogram of the chest is read by [facility] as: 1. No evidence for pulmonary emboli 2. Small hiatal hernia 3. bibasilar areas of scarring or atelectasis similar to the prior study dated 11/09/2017 06/30/18 22:46 CT results discussed with the patient. The patient will be given an incentive spirometer by the respiratory therapist before being discharged home. I will prescribe Xarelto 15 mg Q12 hrs x 21 days, after which the patient can resume her usual 20 mg daily. Departure - Departure Time of Disposition: 22:46 Disposition: Home, Self-Care 01 Condition: Good Clinical Impression: Atelectasis - Discharge Information *PRESCRIPTION DRUG MONITORING PROGRAM REVIEWED*: Not Applicable *COPY OF PRESCRIPTION DRUG MONITORING REPORT IN PATIENT JANETH: Not Applicable Instructions: Incentive Spirometer, Atelectasis, Adult Referrals: Shawnee Jacobs MD [Primary Care Provider] - Forms: ED Department Discharge Additional Instructions: You were seen in the emergency room for shortness of breath and left-sided chest pain. Workup in the ER included a CT angiogram of your chest, which found atelectasis (collapse of lung tissue) on your left side, but no blood clot in your lungs. You have been provided with an incentives prominent. Use the incentive spirometer for approximately 10 repetitions, several times per day, to help get rid of and prevent atelectasis. A prescription for a starting dose of Xarelto has been provided. Take 15 mg of Xarelto every 12 hours, with food, for 3 weeks, after which you may resume your usual 20 mg of Xarelto daily, with food. Follow-up with your PCP, Shawnee Jacobs, as needed. If any other problems, please do not hesitate to return to the ER. - My Orders Last 24 Hours: My Active Orders 06/30/18 21:05 Ang Chest [CT] Stat 06/30/18 22:45 Incentive Spirometry [RT Incentive Spirometry] [RC] ASDIRECTED - Assessment/Plan Last 24 Hours: My Active Orders 06/30/18 21:05 Ang Chest [CT] Stat 06/30/18 22:45 Incentive Spirometry [RT Incentive Spirometry] [RC] ASDIRECTED
[2018-06-30] MEDS ORDERED: Sodium Chloride 0.9% 1,000 ML IV SCH (21:15)
--- NOTE | 2018-07-01 06:45 | CT ---
CT chest Technique: Multiple axial sections through the chest were obtained. Intravenous contrast was utilized. Study has been performed as a pulmonary angiogram protocol. Comparison: Prior CT chest of 11/09/17. Findings: Pulmonary arteries are moderately well-opacified. No filling defects are seen to indicate pulmonary embolism. Small hiatal hernia is seen. Small portion of the visualized upper abdominal structures is otherwise unremarkable. Thoracic aorta shows no aneurysm. No mediastinal adenopathy is seen. Hilar regions are unremarkable. No pleural effusions are seen. Patchy areas of increased density are seen within both lung bases most likely due to areas of atelectasis and scarring. Findings are fairly stable from previous exam. Bone window settings were reviewed which show no acute osseous abnormality. Aberrant right subclavian artery is again noted. Impression: 1. No findings of pulmonary embolism. 2. Other incidental findings. Nothing acute is appreciated. Diagnostic code #2 I agree with preliminary report from [facility], finalized on 06/30/18, 11:32 PM Central Time
== END 2018-06-30 23:35 | disposition home or self-care (01) ==
LOC: JD.ED 20:30
DX: J98.11 Atelectasis (principal); Z79.01 Long term (current) use of anticoagulants; Z88.5 Allergy status to narcotic agent; Z88.2 Allergy status to sulfonamides
CPT/HCPCS: 71275; 96360; 96361; 99285; J7040; 99284

== ENCOUNTER 2018-08-22 07:16 | Day surgery (SDC) | payer BC ==
[~2018-08-22 07:16] MED LIST changes: -Lactated Ringers 1,000 ML IV SCH; +Lidocaine 1%/Sod Bicarbonate in NS 8.4% 1 ML Syringe IDERM PRN; -Lidocaine 1%/Sod Bicarbonate in NS 8.4% 1 ML Syringe IV PRN
--- NOTE | 2018-08-22 07:56 | PCM.PREANE ---
Preanesthetic Assessment - Anesthesia/Transfusion/Family Hx Anesthesia History: Prior Anesthesia Without Reaction Family History of Anesthesia Reaction: No Transfusion History: Prior Transfusion Without Reaction (2 units PRBCs prior to OR) Intubation History: Unknown - Review of Systems General: No Symptoms Pulmonary: No Symptoms (History of Pulmonary Embolism(10/2018)-on Xarelto- off since 08/19/2018/ETOH: rarely) Cardiovascular: Palpitations (Noted at night that feels like a "panic attack.") Gastrointestinal: No Symptoms (History of C-diff,GERD, hiatal hernia), Abdominal Pain (left upper quadrant chronic), Nausea, Vomiting Neurological: Dizziness, Headache (History of intractable migraine headaches/ idiopathic intracranial HTN/Pseudotumor Cerebri) Other: Reports: None (History of anemia), Easy Bleeding, Easy Bruising - Physical Assessment NPO Status Date: 08/21/18 NPO Status Time: 22:30 Pulse: 76 O2 Sat by Pulse Oximetry: 96 Respiratory Rate: 16 Blood Pressure: 122/76 Temperature: 37.0 C Height: 1.6 m Weight: 93 kg ASA Class: 2 Mental Status: Alert & Oriented x3 Airway Class: Mallampati = 3 Dentition: Reports: Normal Dentition, Caries Thyro-Mental Finger Breadths: 3 Mouth Opening Finger Breadths: 3 ROM/Head Extension: Full Lungs: Clear to Auscultation, Normal Respiratory Effort Cardiovascular: Regular Rate, Regular Rhythm, No Murmurs - Lab Values: All labs reviewed and noted and within acceptable ranges to proceed with scheduled procedures. - Imaging/EKG Impressions: EKG: SR, borderline prolonged ISH, borderline T abnormalities anterior leads, rate= 98 Echocardiogram:EF= 60-65%, mild mitral and mild tricuspid valve regurgitation. - Allergies Allergies/Adverse Reactions: Allergies Allergy/AdvReac Type Severity Reaction Status Date / Time codeine Allergy Hives Verified 08/19/18 11:16 gluten Allergy Diarrhea Verified 08/19/18 11:16 lactose Allergy Rash Verified 08/19/18 11:16 Sulfa (Sulfonamide Allergy Hives Verified 08/19/18 11:16 Antibiotics) - Anesthesia Plan Pre-Op Medication Ordered: None - Acknowledgements Anesthesia Type Planned: MAC Pt an Appropriate Candidate for the Planned Anesthesia: Yes Alternatives and Risks of Anesthesia Discussed w Pt/Guardian: Yes Pt/Guardian Understands and Agrees with Anesthesia Plan: Yes PreAnesthesia Questionnaire HEENT History: Reports: Impaired Vision Other HEENT History: wears glasses Cardiovascular History: Reports: Blood Clots/VTE/DVT, Hypertension Respiratory History: Reports: PE Other Respiratory History: HX PE 2018 Gastrointestinal History: Reports: GERD, Hiatal Hernia Other Gastrointestinal History: c diff, diarrhea Genitourinary History: Reports: None SUSPENDER MAKER History: Reports: Other OB/BYN History: Here for hysterctomy in am Musculoskeletal History: Reports: Fracture Other Musculoskeletal History: HX of fracture in left foot. Healed Neurological History: Reports: Migraines, Other (See Below) Other Neuro History: intercranial HTN in jan last year Psychiatric History: Reports: None Endocrine/Metabolic History: Reports: Obesity/BMI 30+ Hematologic History: Reports: Anemia, Anticoagulation Therapy Immunologic History: Reports: None Oncologic (Cancer) History: Reports: None Dermatologic History: Reports: None - Infectious Disease History Infectious Disease History: Reports: Chicken Pox - Past Surgical History Head Surgeries/Procedures: Reports: None HEENT Surgical History: Reports: Adenoidectomy, Tonsillectomy Cardiovascular Surgical History: Reports: None Other Cardiovascular Surgeries/Procedures: on Xarelto. stoppped since wed for OR Respiratory Surgical History: Reports: None GI Surgical History: Reports: None Female Surgical History: Reports: Hysterectomy, Salpingo-Oophorectomy, Tubal Ligation Male Surgical History: Reports: None Endocrine Surgical History: Reports: None Neurological Surgical History: Reports: None Musculoskeletal Surgical History: Reports: Arthroscopic Knee Oncologic Surgical History: Reports: None Dermatological Surgical History: Reports: None - SUBSTANCE USE Smoking Status *Q: Former Smoker Recreational Drug Use History: No - HOME MEDS Home Medications: Home Meds Lactobacillus Combination No.4 [Probiotic] 1 cap PO DAILY 08/19/18 [History] Pantoprazole Sodium [Protonix] 40 mg PO DAILY 08/19/18 [History] Rivaroxaban [Xarelto] 10 mg PO DAILY 08/19/18 [History] SUMAtriptan Succinate [Imitrex] 25 mg PO ASDIRECTED PRN 08/19/18 [History] Sucralfate [Carafate] 1 gm PO QID PRN 08/19/18 [History] - CURRENT (IN HOUSE) MEDS Current Meds: Current Medications Lactated Ringer's (Ringers, Lactated) 1,000 mls @ 125 mls/hr IV ASDIRECTED KRISH Stop: 08/22/18 23:00 Lidocaine/Sodium Bicarbonate (Buffered Lidocaine 1% In Ns 8.4%) 0.25 ml IDERM ONETIME PRN PRN Reason: Prior to IV Start Stop: 08/22/18 18:00 Sodium Chloride (Saline Flush) 10 ml FLUSH ASDIRECTED PRN PRN Reason: Keep Vein Open Stop: 08/22/18 18:00
[2018-08-22] MEDS: Lactated Ringers 1,000 ML IV SCH ×2 (08:00→08:46)
[2018-08-22] MEDS ORDERED: Propofol 200 MG/20 ML SDV ONE ×4 (08:31→09:25)
[2018-08-22] MEDS ORDERED: Midazolam 1 MG/ML 2 ML SDV ONE (09:08)
--- NOTE | 2018-08-22 09:43 | PCM.OPNOTE ---
- General Post-Op/Procedure Note Date of Surgery/Procedure: 08/22/18 Operative Procedure(s): egd with biopays\ colonosocopy with collection of stool for analysis Pre Op Diagnosis: GERD/change in bowel habits with hx of c. diff Post-Op Diagnosis: Same Anesthesia Technique: MAC Primary Surgeon: Nghia Su EBL in mLs: 0 Complications: None Condition: Good
--- NOTE | 2018-08-22 09:50 | PCM48HPAN ---
Post Anesthesia Note - EVALUATION WITHIN 48HRS OF ANESTHETIC Patient Participated in Evaluation: Yes Respiratory Function Stable: Yes Airway Patent: Yes Cardiovascular Function Stable: Yes Hydration Status Stable: Yes Pain Control Satisfactory: Yes Nausea and Vomiting Control Satisfactory: Yes Mental Status Recovered: Yes Pulse Rate: 76 Resp Rate: 16 Temperature: 37.0 C Blood Pressure: 122/76 Pulse Rate: 68
[2018-08-22 10:18] VITALS: BP 108/87
--- NOTE | 2018-08-23 07:39 | OR ---
DATE OF OPERATION: 08/22/2018 SURGEON: Nghia Su MD PREOPERATIVE DIAGNOSIS: Gastroesophageal reflux disease. POSTOPERATIVE DIAGNOSIS: Gastroesophageal reflux disease. OPERATION PERFORMED: Esophagogastroduodenoscopy with biopsy. FINDINGS: Normal second portion of the duodenum, duodenal bulb, pyloric channel, and antrum, body, cardia, and fundus of the stomach. Hiatus was widely patent. The indentation of the diaphragm was located at 35 cm. The GE junction was located at 30 cm. The intervening 5 cm suggested Jalloh's. Biopsies were taken of the lower esophagus below the gastroesophageal junction. Four-quadrant biopsies were taken there and a biopsy of the GE junction was then performed, 1 biopsy at 30 cm. Rest of the esophagus viewed as the scope withdrawn unremarkable. ANESTHESIA: Done under IV sedation. DESCRIPTION OF PROCEDURE: The patient was taken to the endoscopy room, placed in a supine position, connected to monitoring equipment, given IV sedation. The patient was placed in the left lateral position. Bite block was inserted and video Olympus gastroscope placed in the posterior oropharynx under direct vision and threaded past the cricopharyngeus, down the esophagus, into the stomach. The stomach was insufflated and the scope passed through the pylorus to the second portion of the duodenum. It was slowly withdrawn showing normal second portion of the duodenum, duodenal bulb, and pyloric channel. Antrum, body, and cardia of the stomach were unremarkable. J-maneuver showed an incompetent hiatus. The scope withdrawn to the hiatal hernia pouch, in which the indentation of the diaphragm was noted at 30 cm and then slowly withdrawn to what appeared to be a narrowing at the GE junction, which was biopsied suggesting Jalloh's. At 30 cm, the actual gastroesophageal junction was noted and this was biopsied. Four-quadrant biopsy was done of the area that was considered Ajlloh's. Rest of the esophagus was unremarkable. The patient tolerated the procedure well. IV sedation continued for colonoscopy. ESTIMATED BLOOD LOSS: MMODAL /[id number]
--- NOTE | 2018-08-23 07:40 | OR ---
DATE OF OPERATION: 08/22/2018 SURGEON: Nghia Su MD PREOPERATIVE DIAGNOSIS: Change in bowel habits with history of Clostridium difficile. POSTOPERATIVE DIAGNOSIS: Change in bowel habits with history of Clostridium difficile. OPERATION PERFORMED: Colonoscopy to the cecum under IV sedation with collection of stool for analysis. FINDINGS: Normal study. DESCRIPTION OF PROCEDURE: The patient having been connected to monitoring equipment and given IV sedation, was continued for colonoscopy. She was placed in the left lateral position. Perianal area was inspected and was normal. Rectal exam showed good sphincter tone. A video Olympus colonoscope was then introduced into the rectum and threaded up without problem to the cecum, where the appendicular orifice was noted. Prep was excellent. [place] Cleansing Score grade A. Then, the scope was slowly withdrawn aspirating stool in the process for analysis and the cecum, ascending colon, transverse colon, descending colon, sigmoid colon, and rectum were reviewed. The patient tolerated the procedure and sent to the recovery room in a stable condition. Specimen sent for stool cultures and C. diff. ANESTHESIA: ESTIMATED BLOOD LOSS: MMODAL /[id number]
== END 2018-08-22 10:30 | disposition home or self-care (01) ==
LOC: JD.SDS 07:16
PROVIDERS: ATTEND Surgery
DX: K21.9 Gastro-esophageal reflux disease without esophagitis (principal); D13.0 Benign neoplasm of esophagus; K20.9 Esophagitis, unspecified; K44.9 Diaphragmatic hernia without obstruction or gangrene; K29.70 Gastritis, unspecified, without bleeding; I51.89 Other ill-defined heart diseases; I26.99 Other pulmonary embolism without acute cor pulmonale; G93.2 Benign intracranial hypertension; Z79.01 Long term (current) use of anticoagulants; Z88.5 Allergy status to narcotic agent; Z88.2 Allergy status to sulfonamides; Z91.010 Allergy to peanuts; Z91.011 Allergy to milk products; Z91.018 Allergy to other foods
CPT/HCPCS: 36415; 43239; 45378; 85025; 87046; 87328; 87329; 87493; J2250; J2704; J7120; 00813; 87427

== ENCOUNTER 2019-04-08 15:33 | Emergency (ER) | payer BC ==
[2019-04-08 16:07] VITALS: BP 137/101; PULSE 99
== END 2019-04-08 17:14 ==
LOC: JD.ED 15:33
DX: Z53.21 Procedure and treatment not carried out due to patient leaving prior to being seen by health care provider (principal)

== ENCOUNTER 2019-05-26 13:09 | Emergency (ER) | payer BC ==
[2019-05-26] MEDS ORDERED: Sodium Chloride 0.9% 10 ML Syringe FLUSH PRN (13:35)
[2019-05-26] MEDS ORDERED: LORazepam 2 MG/ML SDV IVPUSH ONE (13:35)
[2019-05-26] MEDS ORDERED: Pantoprazole 40 MG Vial IVPUSH ONE (13:35)
[2019-05-26] MEDS ORDERED: Ondansetron 4 MG/2 ML SDV IVPUSH ONE (13:35)
--- NOTE | 2019-05-26 13:40 | EDM.PDOC ---
ED HPI GENERAL MEDICAL PROBLEM - General Chief Complaint: Gastrointestinal Problem Stated Complaint: VOMITING BLOOD Time Seen by Provider: 05/26/19 13:26 Source of Information: Reports: Patient, Family History Limitations: Reports: No Limitations - History of Present Illness INITIAL COMMENTS - FREE TEXT/NARRATIVE: Patient is an unfortunate 39-year-old female that is obese presents emergency Department today with complaint of hematemesis. Patient reports she was in her normal state of health until last evening when she reports her gastroparesis started acting up and she started having vomiting secondary to. Patient reports she coughed up "brown stuff" throughout the night and then today she was vomiting vomiting up brown stuff and then approximately 30 minutes prior to arrival she vomited up what she reports as bright red blood. Patient reports that she was diagnosed with breast cancer or days ago she received a phone call from her doctor's office and told her that she had breast cancer she has not had a plan on whether or not they're going to do chemotherapy radiation or surgery yet. Patient reports she is exquisitely anxious and has been taking Xanax at home with minimal improvements and anxiety. She is on his arrival to for past history of pulmonary embolus and DVT , her last PE was in July of this year. Patient reports that she has seen a veterans' counselor in [place] and has had an EGD in August of this year by Dr. Norman (?sp) she was reported as "normal" - Related Data Allergies Allergy/AdvReac Type Severity Reaction Status Date / Time codeine Allergy Hives Verified 05/26/19 13:24 gluten Allergy Diarrhea Verified 05/26/19 13:24 lactose Allergy Rash Verified 05/26/19 13:24 Sulfa (Sulfonamide Allergy Hives Verified 05/26/19 13:24 Antibiotics) Home Meds: Home Meds Pantoprazole Sodium [Protonix] 40 mg PO DAILY PRN 08/19/18 [History] Rivaroxaban [Xarelto] 20 mg PO DAILY 08/19/18 [History] Furosemide [Lasix] 20 mg PO BID 03/22/19 [History] Potassium Chloride [Klor-Con M20] 20 meq PO BID 03/22/19 [History] ALPRAZolam [Alprazolam Odt] 0.25 mg PO Q8H PRN 05/26/19 [History] Escitalopram [Lexapro] 10 mg PO DAILY 05/26/19 [History] LORazepam [Ativan] 1 mg PO TID PRN #12 tablet 05/26/19 [Rx] Ondansetron [Zofran ODT] 4 mg PO TID PRN #8 tab.dis 05/26/19 [Rx] Past Medical History HEENT History: Reports: Impaired Vision Other HEENT History: wears glasses Cardiovascular History: Reports: Blood Clots/VTE/DVT Respiratory History: Reports: PE Other Respiratory History: HX PE 2017; 2015 Gastrointestinal History: Reports: Hiatal Hernia, Other (See Below) Other Gastrointestinal History: gastric paresis Genitourinary History: Reports: None 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 Healed Neurological History: Reports: Headaches, Chronic, Other (See Below) Other Neuro History: intercranial hypertension Psychiatric History: Reports: None Endocrine/Metabolic History: Reports: Obesity/BMI 30+ Hematologic History: Reports: Anemia Immunologic History: Reports: None Oncologic (Cancer) History: Reports: None Dermatologic History: Reports: None - Infectious Disease History Infectious Disease History: Reports: C-Difficile, Chicken Pox - Past Surgical History Head Surgeries/Procedures: Reports: None HEENT Surgical History: Reports: Adenoidectomy, Tonsillectomy Respiratory Surgical History: Reports: None Female Surgical History: Reports: Hysterectomy, Tubal Ligation Oncologic Surgical History: Reports: None Dermatological Surgical History: Reports: None Social & Family History - Family History Family Medical History: Noncontributory - Tobacco Use Smoking Status *Q: Never Smoker Second Hand Smoke Exposure: No - Caffeine Use Caffeine Use: Reports: Coffee, Energy Drinks, Soda Other Caffeine Use: 1-2 paulie 3 times per week - Recreational Drug Use Recreational Drug Use: No - Living Situation & Occupation Living situation: Reports: , with Spouse, with Family (7 kids) Occupation: Unemployed ED ROS GENERAL - Review of Systems Review Of Systems: See Below Constitutional: Denies: Fever, Chills GI/Abdominal: Reports: Abdominal Pain, Hematemesis, Nausea, Vomiting. Denies: Hematochezia, Melena ED EXAM, GI/ABD - Physical Exam Exam: See Below Exam Limited By: No Limitations General Appearance: Alert, WD/WN, Mild Distress, Obese Throat/Mouth: Normal Inspection, Normal Lips, Normal Teeth, Normal Gums, Normal Oropharynx, Normal Voice, No Airway Compromise Head: Atraumatic, Normocephalic Neck: Normal Inspection, Supple, Non-Tender, Full Range of Motion Respiratory/Chest: No Respiratory Distress, Lungs Clear, Normal Breath Sounds, No Accessory Muscle Use, Chest Non-Tender Cardiovascular: Normal Peripheral Pulses, Regular Rate, Rhythm, No Edema, No Gallop, No JVD, No Murmur, No Rub GI/Abdominal Exam: Normal Bowel Sounds, Soft, No Distention, Tender (mild epigastric) Back Exam: Normal Inspection Neurological: Alert Skin Exam: Warm, Dry Course - Vital Signs Last Recorded V/S: Last Vital Signs Temp 99.3 F 05/26/19 13:19 Pulse 94 05/26/19 13:19 Resp 16 05/26/19 13:19 BP 127/90 05/26/19 13:19 Pulse Ox 97 05/26/19 13:19 - Orders/Labs/Meds Orders: Active Orders 24 hr Category Date Time Status Sodium Chloride 0.9% [Saline Flush] Med 05/26/19 13:35 Active 10 ml FLUSH ASDIRECTED PRN Saline Lock Insert [OM.PC] Stat Oth 05/26/19 13:34 Ordered Medication Orders Sodium Chloride (Saline Flush) 10 ml FLUSH ASDIRECTED PRN PRN Reason: Keep Vein Open Last Admin: 05/26/19 14:04 Dose: 10 ml Labs: Laboratory Tests 05/26/19 05/26/19 05/26/19 Range/Units 14:00 14:00 14:00 WBC 6.65 (3.98-10.04) K/mm3 RBC 5.85 H (3.98-5.22) M/mm3 Hgb 14.9 D (11.2-15.7) gm/dl Hct 46.6 H (34.1-44.9) % MCV 79.7 D (79.4-94.8) fl MCH 25.5 L (25.6-32.2) pg MCHC 32.0 L (32.2-35.5) g/dl RDW Std Deviation 46.7 H (36.4-46.3) fL Plt Count 324 (182-369) K/mm3 MPV 10.4 (9.4-12.3) fl Neut % (Auto) 57.8 (34.0-71.1) % Lymph % (Auto) 31.9 (19.3-51.7) % [place] % (Auto) 6.6 (4.7-12.5) % Eos % (Auto) 3.3 (0.7-5.8) Baso % (Auto) 0.2 (0.1-1.2) % Neut # (Auto) 3.85 (1.56-6.13) K/mm3 Lymph # (Auto) 2.12 (1.18-3.74) K/mm3 [place] # (Auto) 0.44 H (0.24-0.36) K/mm3 Eos # (Auto) 0.22 (0.04-0.36) K/mm3 Baso # (Auto) 0.01 (0.01-0.08) K/mm3 PT 11.5 (9.7-12.0) SECONDS INR 1.06 APTT 24 (22-31) SECONDS Sodium 138 (136-145) mEq/L Potassium 3.5 (3.5-5.1) mEq/L Chloride 101 (98-107) mEq/L Carbon Dioxide 27 (21-32) mEq/L Anion Gap 13.5 (5-15) BUN 10 (7-18) mg/dL Creatinine 0.9 (0.55-1.02) mg/dL Est Cr Clr Drug Dosing 73.19 mL/min Estimated GFR (MDRD) > 60 (>60) mL/min BUN/Creatinine Ratio 11.1 L (14-18) Glucose 92 (74-106) mg/dL Calcium 9.4 (8.5-10.1) mg/dL Total Bilirubin 0.5 (0.2-1.0) mg/dL AST 29 (15-37) U/L ALT 70 H (14-59) U/L Alkaline Phosphatase 109 (46-116) U/L Total Protein 8.3 H (6.4-8.2) g/dl Albumin 3.9 (3.4-5.0) g/dl Globulin 4.4 gm/dL Albumin/Globulin Ratio 0.9 L (1-2) Lipase 101 (73-393) U/L Urine Color (Yellow) Urine Appearance (Clear) Urine pH (5.0-8.0) Ur Specific [place] (1.005-1.030) Urine Protein (Negative) Urine Glucose (UA) (Negative) Urine Ketones (Negative) Urine Occult Blood (Negative) Urine Nitrite (Negative) Urine Bilirubin (Negative) Urine Urobilinogen (0.2-1.0) Ur Leukocyte Esterase (Negative) Urine RBC (0-5) /hpf Urine WBC (0-5) /hpf Ur Squamous Epith Cells (0-5) /hpf Urine Bacteria (FEW) /hpf Urine Mucus (FEW) /hpf 05/26/19 05/26/19 Range/Units 14:10 17:32 WBC (3.98-10.04) K/mm3 RBC (3.98-5.22) M/mm3 Hgb 13.8 (11.2-15.7) gm/dl Hct (34.1-44.9) % MCV (79.4-94.8) fl MCH (25.6-32.2) pg MCHC (32.2-35.5) g/dl RDW Std Deviation (36.4-46.3) fL Plt Count (182-369) K/mm3 MPV (9.4-12.3) fl Neut % (Auto) (34.0-71.1) % Lymph % (Auto) (19.3-51.7) % [place] % (Auto) (4.7-12.5) % Eos % (Auto) (0.7-5.8) Baso % (Auto) (0.1-1.2) % Neut # (Auto) (1.56-6.13) K/mm3 Lymph # (Auto) (1.18-3.74) K/mm3 [place] # (Auto) (0.24-0.36) K/mm3 Eos # (Auto) (0.04-0.36) K/mm3 Baso # (Auto) (0.01-0.08) K/mm3 PT (9.7-12.0) SECONDS INR APTT (22-31) SECONDS Sodium (136-145) mEq/L Potassium (3.5-5.1) mEq/L Chloride (98-107) mEq/L Carbon Dioxide (21-32) mEq/L Anion Gap (5-15) BUN (7-18) mg/dL Creatinine (0.55-1.02) mg/dL Est Cr Clr Drug Dosing mL/min Estimated GFR (MDRD) (>60) mL/min BUN/Creatinine Ratio (14-18) Glucose (74-106) mg/dL Calcium (8.5-10.1) mg/dL Total Bilirubin (0.2-1.0) mg/dL AST (15-37) U/L ALT (14-59) U/L Alkaline Phosphatase (46-116) U/L Total Protein (6.4-8.2) g/dl Albumin (3.4-5.0) g/dl Globulin gm/dL Albumin/Globulin Ratio (1-2) Lipase (73-393) U/L Urine Color Yellow (Yellow) Urine Appearance Clear (Clear) Urine pH 8.5 H (5.0-8.0) Ur Specific [place] 1.020 (1.005-1.030) Urine Protein Trace H (Negative) Urine Glucose (UA) Negative (Negative) Urine Ketones Negative (Negative) Urine Occult Blood Negative (Negative) Urine Nitrite Negative (Negative) Urine Bilirubin Negative (Negative) Urine Urobilinogen 1.0 (0.2-1.0) Ur Leukocyte Esterase Negative (Negative) Urine RBC 0-5 (0-5) /hpf Urine WBC 0-5 (0-5) /hpf Ur Squamous Epith Cells 5-10 H (0-5) /hpf Urine Bacteria Moderate H (FEW) /hpf Urine Mucus Few (FEW) /hpf Meds: Medications Generic Name Dose Route Start Last Admin Trade Name Freq PRN Reason Stop Dose Admin Sodium Chloride 10 ml 05/26/19 13:35 05/26/19 14:04 Saline Flush FLUSH 10 ml ASDIRECTED PRN Administration Keep Vein Open Discontinued Medications Generic Name Dose Route Start Last Admin Trade Name Freq PRN Reason Stop Dose Admin Lorazepam 1 mg 05/26/19 13:35 05/26/19 14:03 Ativan IVPUSH 05/26/19 13:36 1 mg ONETIME ONE Administration Ondansetron HCl 4 mg 05/26/19 13:35 05/26/19 14:03 Zofran IVPUSH 05/26/19 13:36 4 mg ONETIME ONE Administration Pantoprazole Sodium 40 mg 05/26/19 13:35 05/26/19 14:04 Protonix Iv IVPUSH 05/26/19 13:36 40 mg ONETIME ONE Administration - Re-Assessments/Exams Free Text/Narrative Re-Assessment/Exam: 05/26/19 18:11 No significant Change in hemoglobin we'll discharge to home, no further episodes of emesis or nausea or pain 05/26/19 18:20 Departure - Departure Time of Disposition: 18:23 Disposition: Home, Self-Care 01 Condition: Fair Clinical Impression: Vomiting, Anxiety Hematemesis Qualifiers: Nausea presence: unspecified Qualified Code(s): K92.0 - Hematemesis - Discharge Information *PRESCRIPTION DRUG MONITORING PROGRAM REVIEWED*: Yes *COPY OF PRESCRIPTION DRUG MONITORING REPORT IN PATIENT JANETH: No Prescriptions: LORazepam [Ativan] 1 mg PO TID PRN #12 tablet PRN Reason: Anxiety Ondansetron [Zofran ODT] 4 mg PO TID PRN #8 tab.dis PRN Reason: Vomiting Referrals: Shawnee Jacobs MD [Primary Care Provider] - Forms: ED Department Discharge Additional Instructions: Home, rest, adequate fluids, return as needed for worsening condition Sepsis Event Note - Evaluation Sepsis Screening Result: No Definite Risk - Focused Exam Vital Signs: Vital Signs Temp Pulse Resp BP Pulse Ox 05/26/19 13:19 99.3 F 94 16 127/90 97 Date Exam was Performed: 05/26/19 Time Exam was Performed: 18:20 - My Orders Last 24 Hours: My Active Orders 05/26/19 13:34 Saline Lock Insert [OM.PC] Stat 05/26/19 13:35 Sodium Chloride 0.9% [Saline Flush] 10 ml FLUSH ASDIRECTED PRN - Assessment/Plan Last 24 Hours: My Active Orders 05/26/19 13:34 Saline Lock Insert [OM.PC] Stat 05/26/19 13:35 Sodium Chloride 0.9% [Saline Flush] 10 ml FLUSH ASDIRECTED PRN
[2019-05-26 14:02] VITALS: BP 127/90; PULSE 94
== END 2019-05-26 18:41 | disposition home or self-care (01) ==
LOC: JD.ED 13:09
DX: K92.0 Hematemesis (principal); F41.9 Anxiety disorder, unspecified; E66.9 Obesity, unspecified; Z88.5 Allergy status to narcotic agent; Z88.2 Allergy status to sulfonamides; Z91.018 Allergy to other foods; Z91.011 Allergy to milk products; Z68.36 Body mass index [BMI] 36.0-36.9, adult; Z79.899 Other long term (current) drug therapy
CPT/HCPCS: 36415; 80053; 81001; 83690; 85018; 85025; 85610; 85730; 96374; 96375; 99284; C9113; J2060; J2405

== ENCOUNTER 2019-08-23 22:57 | Emergency (ER) | payer BC, MEDICAID ==
[2019-08-23 23:23] VITALS: BP 119/75; PULSE 100
--- NOTE | 2019-08-23 23:46 | EDM.PDOC ---
ED HPI GENERAL MEDICAL PROBLEM - General Chief Complaint: Chest Pain Stated Complaint: CHEST PAIN SOB Time Seen by Provider: 08/23/19 23:24 Source of Information: Reports: Patient History Limitations: Reports: No Limitations - History of Present Illness INITIAL COMMENTS - FREE TEXT/NARRATIVE: Mrs. Katz is a very pleasant 38-year-old woman with a past medical history significant for a DVT discovered in 2014 and a pulmonary embolus in 2018, on Xarelto, as well as invasive ductal carcinoma of the left breast diagnosed this past May 2019, status post bilateral mastectomies on 06/29/2019. She started chemotherapy this past 08/16/2019. The patient now presents to the ED stating that she developed dyspnea, both at rest and with exertion, central chest pressure and spasms, and possible palpitations around 21:30 this evening. No prior similar symptoms. The patient states that she has had some nausea and vomiting associated with the chemotherapy, otherwise, she denies recent fever, chills, sore throat, ear pain, nasal or sinus congestion, cough, dyspnea, chest pain, palpitations, constipation, diarrhea, abdominal pain, urinary symptoms, recent weight gain or weight loss, recent bloody bowel movements or black bowel movements, recent joint aches, headaches, or rashes. Here in the ED, the patient is found to be hemodynamically stable, afebrile, saturating 98% on room air. The patient states that she had some blood work drawn at [facility] earlier today, and she is aware that her WBC count is low, and that she is anemic. The patient's PCP is Shawnee Jacobs NP. Her Oncologist is Dr. Freddie Lee. Her Manugrapher is Dr. Pilo Christian. Her Vascular Surgeon is Dr. Rufino Gallagher. Middle Chest Pain Score (Numeric/FACES): 7 - Related Data Allergies Allergy/AdvReac Type Severity Reaction Status Date / Time codeine Allergy Hives Verified 08/23/19 23:28 gluten Allergy Diarrhea Verified 08/23/19 23:28 lactose Allergy Rash Verified 08/23/19 23:28 Sulfa (Sulfonamide Allergy Hives Verified 08/23/19 23:28 Antibiotics) Home Meds: Home Meds Pantoprazole Sodium [Protonix] 40 mg PO DAILY PRN 08/19/18 [History] Rivaroxaban [Xarelto] 20 mg PO DAILY 08/19/18 [History] Furosemide [Lasix] 20 mg PO BID 03/22/19 [History] Potassium Chloride [Klor-Con M20] 20 meq PO BID 03/22/19 [History] ALPRAZolam [Alprazolam Odt] 0.25 mg PO Q8H PRN 05/26/19 [History] Escitalopram [Lexapro] 10 mg PO DAILY 05/26/19 [History] LORazepam [Ativan] 1 mg PO TID PRN #12 tablet 05/26/19 [Rx] Ondansetron [Zofran ODT] 4 mg PO TID PRN #8 tab.dis 05/26/19 [Rx] Past Medical History HEENT History: Reports: Impaired Vision Other HEENT History: wears glasses Cardiovascular History: Reports: Blood Clots/VTE/DVT (Jul 2014), Hypertension Respiratory History: Reports: PE (Oct 2017) Gastrointestinal History: Reports: GERD, Hiatal Hernia : 7 Para: 7 Musculoskeletal History: Reports: Fracture (left foot) Neurological History: Reports: Headaches, Chronic (pseudotumor cerebri) Endocrine/Metabolic History: Reports: Obesity/BMI 30+ Hematologic History: Reports: Anemia Oncologic (Cancer) History: Reports: Breast (Left invasive ductal carcinoma, dx' s May 2019, s/p bilat mastectomies Jun 2019) - Infectious Disease History Infectious Disease History: Reports: C-Difficile, Chicken Pox - Past Surgical History HEENT Surgical History: Reports: Adenoidectomy, Tonsillectomy Cardiovascular Surgical History: Reports: Vascular Surgery (Rt temporal artery biopsy 03/21/2019), Other (See Below) (Right Port-A-Cath) Female Surgical History: Reports: Hysterectomy (complete), Tubal Ligation ( left only) Oncologic Surgical History: Reports: Biopsy of Breast (left), Mastectomy ( bilateral, 06/29/2019) Social & Family History - Family History Family Medical History: Noncontributory - Tobacco Use Smoking Status *Q: Never Smoker - Caffeine Use Caffeine Use: Reports: None Other Caffeine Use: 1-2 paulie 3 times per week - Alcohol Use Alcohol Use History: Yes Alcohol Use Frequency: Rarely - Recreational Drug Use Recreational Drug Use: No - Living Situation & Occupation Living situation: Reports: , with Spouse, with Family (7 kids) Occupation: Unemployed ED ROS GENERAL - Review of Systems Review Of Systems: Comprehensive ROS is negative, except as noted in HPI. ED EXAM, GENERAL - Physical Exam Exam: See Below Exam Limited By: No Limitations General Appearance: Alert, WD/WN, Anxious Eye Exam: Bilateral Eye: EOMI, Normal Inspection Ears: Normal External Exam, Hearing Grossly Normal Nose: Normal Inspection Throat/Mouth: Normal Inspection, Normal Lips, Normal Voice, No Airway Compromise Head: Atraumatic, Normocephalic Neck: Normal Inspection, Full Range of Motion Respiratory/Chest: No Respiratory Distress, Lungs Clear, Normal Breath Sounds, No Accessory Muscle Use, Chest Non-Tender Cardiovascular: Normal Peripheral Pulses, Regular Rate, Rhythm, No Edema, No Gallop, No JVD, No Murmur, No Rub Peripheral Pulses: 4+: Radial (L), Radial (R) GI/Abdominal: Normal Bowel Sounds, Soft, Non-Tender, No Organomegaly, No Distention, No Abnormal Bruit, No Mass (Female) Exam: Deferred Rectal (Female) Exam: Deferred Back Exam: Normal Inspection, Full Range of Motion, NT Extremities: Normal Inspection, Normal Range of Motion, No Pedal Edema, Normal Capillary Refill Neurological: Alert, Oriented, Normal Cognition, No Motor/Sensory Deficits Psychiatric: Normal Affect Skin Exam: Warm, Dry, Intact, Normal Color, No Rash EKG INTERPRETATION EKG Date: 08/23/19 Time: 23:12 Rhythm: Other (Sinus tachycardia) Rate (Beats/Min): 103 [place]: Normal P-Wave: Present QRS: Normal (Early transition) ST-T: Normal QT: Normal Comparison: No Change (11/09/2017) Course - Vital Signs Last Recorded V/S: Last Vital Signs Temp 37.3 C 08/23/19 23:18 Pulse 100 08/23/19 23:18 Resp 20 08/23/19 23:18 BP 119/75 08/23/19 23:18 Pulse Ox 98 08/23/19 23:18 - Orders/Labs/Meds Orders: Active Orders 24 hr Category Date Time Status EKG 12 Lead [EKG Documentation Completion] [RC] STAT Care 08/23/19 23:10 Active Chest 2V [CR] Stat Exams 08/23/19 23:36 Taken Labs: Laboratory Tests 04/22/20 04/22/20 04/22/20 Range/Units 23:40 23:40 23:40 WBC 2.52 L (3.98-10.04) K/mm3 RBC 4.67 (3.98-5.22) M/mm3 Hgb 10.0 L D (11.2-15.7) gm/dl Hct 34.0 L (34.1-44.9) % MCV 72.8 L D (79.4-94.8) fl MCH 21.4 L (25.6-32.2) pg MCHC 29.4 L (32.2-35.5) g/dl RDW Std Deviation 42.8 (36.4-46.3) fL Plt Count 272 (182-369) K/mm3 MPV 9.5 (9.4-12.3) fl Neutrophils % (Manual) 33 L (40-60) % Band Neutrophils % 1 (0-10) % Lymphocytes % (Manual) 56 H (20-40) % Atypical Lymphs % 0 % Monocytes % (Manual) 7 (2-10) % Eosinophils % (Manual) 3 (0.7-5.8) % Basophils % (Manual) 0 L (0.1-1.2) Platelet Estimate Adequate Polychromasia 1+ slight Hypochromasia 2+ moderate Anisocytosis 2+ moderate Microcytosis 1+ slight Macrocytosis 1+ slight RBC Morph Comment Not Reportable D-Dimer, Quantitative 1.80 H (0.19-0.50) mg/L Puncture Site ABG pH (7.35-7.45) ABG pCO2 (35.0-45.0) mmHg ABG pO2 (80.0-100.0) mmHg ABG HCO3 (22.0-26.0) meq/L ABG O2 Saturation (96.0-97.0) % ABG Base Excess (-2-2.0) Pepe Test A-a Gradient mmHg O2 Delivery Device Oxygen Flow Rate FiO2 (21.00-100.00) % Sodium 138 (136-145) mEq/L Potassium 4.0 (3.5-5.1) mEq/L Chloride 103 (98-107) mEq/L Carbon Dioxide 25 (21-32) mEq/L Anion Gap 14.0 (5-15) BUN 5 L (7-18) mg/dL Creatinine 0.7 (0.55-1.02) mg/dL Est Cr Clr Drug Dosing 94.10 mL/min Estimated GFR (MDRD) > 60 (>60) mL/min BUN/Creatinine Ratio 7.1 L (14-18) Glucose 152 H (74-106) mg/dL Calcium 9.2 (8.5-10.1) mg/dL Magnesium 1.9 (1.8-2.4) mg/dl Total Bilirubin 0.3 (0.2-1.0) mg/dL AST 85 H (15-37) U/L ALT 131 H (14-59) U/L Alkaline Phosphatase 138 H (46-116) U/L Troponin I < 0.017 (0.00-0.056) ng/mL Total Protein 7.5 (6.4-8.2) g/dl Albumin 3.6 (3.4-5.0) g/dl Globulin 3.9 gm/dL Albumin/Globulin Ratio 0.9 L (1-2) 04/ Range/Units 23:53 WBC (3.98-10.04) K/mm3 RBC (3.98-5.22) M/mm3 Hgb (11.2-15.7) gm/dl Hct (34.1-44.9) % MCV (79.4-94.8) fl MCH (25.6-32.2) pg MCHC (32.2-35.5) g/dl RDW Std Deviation (36.4-46.3) fL Plt Count (182-369) K/mm3 MPV (9.4-12.3) fl Neutrophils % (Manual) (40-60) % Band Neutrophils % (0-10) % Lymphocytes % (Manual) (20-40) % Atypical Lymphs % % Monocytes % (Manual) (2-10) % Eosinophils % (Manual) (0.7-5.8) % Basophils % (Manual) (0.1-1.2) Platelet Estimate Polychromasia Hypochromasia Anisocytosis Microcytosis Macrocytosis RBC Morph Comment D-Dimer, Quantitative (0.19-0.50) mg/L Puncture Site Lt radial ABG pH 7.42 (7.35-7.45) ABG pCO2 36.6 (35.0-45.0) mmHg ABG pO2 72.0 L (80.0-100.0) mmHg ABG HCO3 23.2 (22.0-26.0) meq/L ABG O2 Saturation 95.9 L (96.0-97.0) % ABG Base Excess -0.6 (-2-2.0) Pepe Test Positive A-a Gradient 33 mmHg O2 Delivery Device Room air Oxygen Flow Rate 0.0 FiO2 21.00 (21.00-100.00) % Sodium (136-145) mEq/L Potassium (3.5-5.1) mEq/L Chloride (98-107) mEq/L Carbon Dioxide (21-32) mEq/L Anion Gap (5-15) BUN (7-18) mg/dL Creatinine (0.55-1.02) mg/dL Est Cr Clr Drug Dosing mL/min Estimated GFR (MDRD) (>60) mL/min BUN/Creatinine Ratio (14-18) Glucose (74-106) mg/dL Calcium (8.5-10.1) mg/dL Magnesium (1.8-2.4) mg/dl Total Bilirubin (0.2-1.0) mg/dL AST (15-37) U/L ALT (14-59) U/L Alkaline Phosphatase (46-116) U/L Troponin I (0.00-0.056) ng/mL Total Protein (6.4-8.2) g/dl Albumin (3.4-5.0) g/dl Globulin gm/dL Albumin/Globulin Ratio (1-2) - Re-Assessments/Exams Free Text/Narrative Re-Assessment/Exam: 08/23/19 23:41 As above, the patient developed central chest pressure and spasms, with possible palpitations, and dyspnea around 21:30 tonight. While she says she does not currently feel anxious, she certainly looks quite anxious, and anxiety could certainly produce all of her symptoms. Nevertheless, I have ordered a work-up that includes a troponin, a chest x-ray, and an ECG. A pulmonary embolus would be highly unlikely while on Xarelto, however, I have ordered a D- dimer. I ordered it in the hopes that it is low, in order to be able to reassure the patient, since I am fairly certain that that is the patient's main concern. The problem will be if the D-dimer is elevated; just because the patient is on Xarelto does not mean that her body has dissolved the previous pulmonary emboli, therefore a repeat CT angiogram, if positive, would not necessarily mean that the patient has suffered new pulmonary emboli. 08/24/19 00:47 Two-view chest radiograph appears to be grossly normal. The cardiac silhouette is within normal limits. No pulmonary vascular congestion. No pleural effusions. No focal infiltrate. No pneumothorax. A right-sided Port-A-Cath is noted. Formal read per the Radiologist pending. 08/24/19 01:13 The patient's CBC is remarkable for a WBC count significantly depressed at 2.52 , and an H/H depressed at 10.0/34.0. Her CMP is remarkable for a blood glucose elevated at 152, and AST/ALT elevated at 85/131, respectively, and an alkaline phosphatase elevated at 138, with the remainder of her CMP being unremarkable. Her magnesium level is within normal limits at 1.9. Her troponin is undetectably low. Her D-dimer is elevated at 1.80. Her ABG is unremarkable. 08/24/19 01:20 Test results discussed with the patient. Other than the patient's low WBC count , mild anemia, and elevated D-dimer her work-up today is unremarkable, and does not explain the cause of her symptoms. I explained to the patient that her D- dimer is most likely due to her current medical condition. I offered to perform a CT angiogram, however, I explained that it may be nearly impossible to interpret if it redemonstrates pulmonary emboli. The patient stated that she did not really think she was suffering from a pulmonary embolus, anyway, and declined a CT angiogram. I will discharge her home. Departure - Departure Time of Disposition: 01:25 Disposition: Home, Self-Care 01 Condition: Good Clinical Impression: Dyspnea, Chest pressure - Discharge Information *PRESCRIPTION DRUG MONITORING PROGRAM REVIEWED*: Not Applicable *COPY OF PRESCRIPTION DRUG MONITORING REPORT IN PATIENT JANETH: Not Applicable Instructions: Shortness of Breath, Adult Referrals: Shawnee Jacobs MD [Primary Care Provider] - Pilo Christian MD [Physician] - Freddie Lee MD [Ordering Only Provider] - Rufino Gallagher MD [Ordering Only Provider] - Forms: ED Department Discharge Additional Instructions: You were seen in the emergency room after developing shortness of breath, chest pressure, and palpitations. Work-up in the ER included blood work, a chest x-ray, and an ECG. Your blood work found your white blood cell count to be low at 2.52, and your hemoglobin/hematocrit to be low at 10.0/34.0. Your D-dimer was found to be elevated at 1.80. The remainder of your work-up was unremarkable. As discussed, although your D-dimer is elevated, your symptoms are not likely due to a repeat pulmonary embolus, since you are already on Xarelto. The cause of your symptoms is not clear. We recommend that you continue to take your current medications as prescribed. If your symptoms persist, please follow-up with your PCP. If any other problems, please do not hesitate to return to the ER. Sepsis Event Note - Evaluation Sepsis Screening Result: No Definite Risk - Focused Exam Vital Signs: Vital Signs Temp Pulse Resp BP Pulse Ox 08/23/19 23:18 37.3 C 100 20 119/75 98 Date Exam was Performed: 08/24/19 Time Exam was Performed: 01:32 - My Orders Last 24 Hours: My Active Orders 08/23/19 23:10 EKG 12 Lead [EKG Documentation Completion] [RC] STAT 08/23/19 23:36 Chest 2V [CR] Stat - Assessment/Plan Last 24 Hours: My Active Orders 08/23/19 23:10 EKG 12 Lead [EKG Documentation Completion] [RC] STAT 08/23/19 23:36 Chest 2V [CR] Stat
--- NOTE | 2019-08-24 09:43 | CR ---
Chest: 2 views of the chest were obtained. Comparison: No prior chest imaging. Heart size and mediastinum are normal. Right-sided infusion port is seen. Lungs are clear with no acute parenchymal change. Surgical clips are seen within the left axillary region. Impression: 1. Nothing acute is seen on 2 view chest x-ray. Diagnostic code #2 This report was dictated in MDT
== END 2019-08-24 01:36 | disposition home or self-care (01) ==
LOC: JD.ED 22:57
DX: R06.00 Dyspnea, unspecified (principal); R07.89 Other chest pain; I10 Essential (primary) hypertension; K21.9 Gastro-esophageal reflux disease without esophagitis; E66.9 Obesity, unspecified; Z68.34 Body mass index [BMI] 34.0-34.9, adult; Z79.01 Long term (current) use of anticoagulants; Z79.899 Other long term (current) drug therapy; Z88.5 Allergy status to narcotic agent; Z91.09 Other allergy status, other than to drugs and biological substances; Z88.2 Allergy status to sulfonamides; Z86.711 Personal history of pulmonary embolism
CPT/HCPCS: 36415; 36600; 71046; 71046-26; 80053; 82803; 83735; 84484; 85007; 85027; 85379; 93005; 93010; 99283; 99285-25

== ENCOUNTER 2019-12-10 21:28 | Emergency (ER) | payer BC, MEDICAID ==
--- NOTE | 2019-12-10 21:50 | EDM.PDOC ---
ED HPI GENERAL MEDICAL PROBLEM - General Chief Complaint: Abdominal Pain Stated Complaint: ABDOMINAL PAINS AND CHILLS Time Seen by Provider: 12/10/19 21:50 - History of Present Illness INITIAL COMMENTS - FREE TEXT/NARRATIVE: 39-year-old female presents the emergency room with abdominal pain. This is been coming and going. She has had a lot going on so she has been trying to put this off as it seems to get better if she does not eat too much. The patient is currently going through chemotherapy for breast cancer she apparently she finished her last round of chemo almost 3 weeks ago. Patient's medical history is been complicated by DVTs and PEs she is on Xarelto. Patient abdominal pain is right upper quadrant tends to be worsened by eating. She cannot differentiate if fatty foods make it worse than other foods. She just thinks any foods make it worse. When the pain occurs it tends to radiate into her back near the area of her right shoulder blade. She has associated nausea with this pain and sometimes vomiting. Right Upper Abdomen Pain Score (Numeric/FACES): 5 - Related Data Allergies Allergy/AdvReac Type Severity Reaction Status Date / Time codeine Allergy Hives Verified 12/10/19 21:56 gluten Allergy Diarrhea Verified 12/10/19 21:56 lactose Allergy Rash Verified 12/10/19 21:56 Sulfa (Sulfonamide Allergy Hives Verified 12/10/19 21:56 Antibiotics) Home Meds: Home Meds Rivaroxaban [Xarelto] 20 mg PO DAILY 08/19/18 [History] Ondansetron [Zofran ODT] 4 mg PO TID PRN #8 tab.dis 05/26/19 [Rx] Past Medical History HEENT History: Reports: Impaired Vision Other HEENT History: wears glasses Cardiovascular History: Reports: Blood Clots/VTE/DVT (Jul 2014), Hypertension Respiratory History: Reports: PE (Oct 2017) Other Respiratory History: HX PE 2018; 2016 Gastrointestinal History: Reports: GERD, Hiatal Hernia Other Gastrointestinal History: gastric paresis Genitourinary History: Reports: None 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 Healed Neurological History: Reports: Headaches, Chronic (pseudotumor cerebri) Other Neuro History: intercranial hypertension Psychiatric History: Reports: None Endocrine/Metabolic History: Reports: Obesity/BMI 30+ Hematologic History: Reports: Anemia Immunologic History: Reports: None Oncologic (Cancer) History: Reports: Breast (Left invasive ductal carcinoma, dx's May 2019, s/p bilat mastectomies Jun 2019) Dermatologic History: Reports: None - Infectious Disease History Infectious Disease History: Reports: C-Difficile, Chicken Pox - Past Surgical History HEENT Surgical History: Reports: Adenoidectomy, Tonsillectomy Cardiovascular Surgical History: Reports: Vascular Surgery (Rt temporal artery biopsy 03/21/2019), Other (See Below) (Right Port-A-Cath) Female Surgical History: Reports: Hysterectomy (complete), Tubal Ligation (left only) Oncologic Surgical History: Reports: Biopsy of Breast (left), Mastectomy (bilateral, 06/29/2019) Social & Family History - Family History Family Medical History: Noncontributory - Caffeine Use Caffeine Use: Reports: None Other Caffeine Use: 1-2 paulie 3 times per week - Living Situation & Occupation Living situation: Reports: , with Spouse, with Family (7 kids) Occupation: Unemployed ED ROS GENERAL - Review of Systems Review Of Systems: See Below Constitutional: Reports: Fever (She had a fever 48 hours ago 101.8). Denies: Chills HEENT: Reports: No Symptoms Respiratory: Reports: No Symptoms Cardiovascular: Reports: No Symptoms GI/Abdominal: Reports: Abdominal Pain, Diarrhea (Intermittent), Nausea (With eating), Vomiting (Intermittent). Denies: Constipation Musculoskeletal: Reports: No Symptoms Skin: Reports: No Symptoms Neurological: Reports: No Symptoms Psychiatric: Reports: No Symptoms Hematologic/Lymphatic: Reports: No Symptoms Immunologic: Reports: No Symptoms ED EXAM, GI/ABD - Physical Exam Exam: See Below Exam Limited By: No Limitations General Appearance: Alert Head: Atraumatic, Normocephalic Neck: Normal Inspection, Supple, Non-Tender, Full Range of Motion Respiratory/Chest: No Respiratory Distress, Lungs Clear, Normal Breath Sounds Cardiovascular: Normal Peripheral Pulses, Regular Rate, Rhythm, No Edema GI/Abdominal Exam: Normal Bowel Sounds, Soft, No Distention, Tender (Again tenderness in the right upper quadrant in the vicinity of the gallbladder.). No: Guarding, Rigid, Rebound Back Exam: Normal Inspection. No: CVA Tenderness (L), CVA Tenderness (R) Neurological: Alert, Oriented, Normal Cognition Psychiatric: Normal Affect, Normal Mood Skin Exam: Warm, Dry, Intact Course - Vital Signs Last Recorded V/S: Last Vital Signs Temp 36.4 C 12/10/19 21:49 Pulse 99 12/10/19 21:49 Resp 16 12/10/19 21:49 BP 135/90 12/10/19 21:49 Pulse Ox 98 12/10/19 21:49 - Orders/Labs/Meds Orders: Active Orders 24 hr Category Date Time Status Abdomen Ltd [US] Stat Exams 12/10/19 22:28 Taken Labs: Laboratory Tests 12/10/19 12/10/19 12/10/19 Range/Units 22:05 22:05 23:50 WBC 6.75 (3.98-10.04) K/mm3 RBC 4.26 (3.98-5.22) M/mm3 Hgb 11.2 (11.2-15.7) gm/dl Hct 37.1 (34.1-44.9) % MCV 87.1 D (79.4-94.8) fl MCH 26.3 (25.6-32.2) pg MCHC 30.2 L (32.2-35.5) g/dl RDW Std Deviation 76.7 H (36.4-46.3) fL Plt Count 301 (182-369) K/mm3 MPV 10.0 (9.4-12.3) fl Neut % (Auto) 70.7 (34.0-71.1) % Lymph % (Auto) 17.0 L (19.3-51.7) % [place] % (Auto) 9.2 (4.7-12.5) % Eos % (Auto) 2.2 (0.7-5.8) Baso % (Auto) 0.6 (0.1-1.2) % Neut # (Auto) 4.77 (1.56-6.13) K/mm3 Lymph # (Auto) 1.15 L (1.18-3.74) K/mm3 [place] # (Auto) 0.62 H (0.24-0.36) K/mm3 Eos # (Auto) 0.15 (0.04-0.36) K/mm3 Baso # (Auto) 0.04 (0.01-0.08) K/mm3 Sodium 139 (136-145) mEq/L Potassium 3.5 (3.5-5.1) mEq/L Chloride 103 (98-107) mEq/L Carbon Dioxide 26 (21-32) mEq/L Anion Gap 13.5 (5-15) BUN 6 L (7-18) mg/dL Creatinine 0.7 (0.55-1.02) mg/dL Est Cr Clr Drug Dosing TNP Estimated GFR (MDRD) > 60 (>60) mL/min BUN/Creatinine Ratio 8.6 L (14-18) Glucose 110 H (74-106) mg/dL Calcium 8.9 (8.5-10.1) mg/dL Total Bilirubin 0.6 (0.2-1.0) mg/dL Direct Bilirubin 0.20 (0.0-0.2) mg/dl GGT 101 H (5-55) U/L AST 69 H (15-37) U/L ALT 81 H (14-59) U/L Alkaline Phosphatase 113 (46-116) U/L Total Protein 7.3 (6.4-8.2) g/dl Albumin 3.7 (3.4-5.0) g/dl Globulin 3.6 gm/dL Albumin/Globulin Ratio 1.0 (1-2) Lipase 101 (73-393) U/L Urine Color Yellow (Yellow) Urine Appearance Clear (Clear) Urine pH 7.5 (5.0-8.0) Ur Specific [place] 1.020 (1.005-1.030) Urine Protein Negative (Negative) Urine Glucose (UA) Negative (Negative) Urine Ketones Negative (Negative) Urine Occult Blood Negative (Negative) Urine Nitrite Negative (Negative) Urine Bilirubin Negative (Negative) Urine Urobilinogen 0.2 (0.2-1.0) Ur Leukocyte Esterase Negative (Negative) Meds: Medications Discontinued Medications Generic Name Dose Route Start Last Admin Trade Name Alivia PRN Reason Stop Dose Admin Fentanyl 50 mcg 12/10/19 22:13 12/10/19 22:19 Sublimaze IVPUSH 12/10/19 22:14 50 mcg ONETIME ONE Administration Lactated Ringer's 1,000 mls @ 999 mls/hr 12/10/19 22:14 08/09/20 22:19 Ringers, Lactated IV 12/10/19 23:14 999 mls/hr .BOLUS ONE Administration Ondansetron HCl 4 mg 12/10/19 22:13 12/10/19 22:19 Zofran IVPUSH 12/10/19 22:14 4 mg ONETIME ONE Administration - Re-Assessments/Exams Free Text/Narrative Re-Assessment/Exam: 12/11/19 00:22 Laboratory evaluation shows no elevation in her white count she has some subtle changes to her RBC indices most likely due to recent chemo chemistries show some minimal transaminase elevation and GGT elevation this could be related to her recent chemo but I am absolutely unclear what she had her bilirubin is not elevated nor is her direct bilirubin. UA unrevealing patient had a gallbladder ultrasound done that was nondiagnostic the gallbladder is contracted no gallstones identified common bile duct was within normal limits and it looks like she has a fatty liver which can explain some of her transaminase changes. I discussed the findings of her work-up with the patient she will follow-up with her primary provider the middle of this next week. She really does not want anything for pain the patient has Carafate at home I recommended that she start this and the patient has done well on Pepcid in the past I will have her start famotidine twice daily for 1 week and then daily thereafter. She has Zofran and a topical antinausea cream at home. I offered pain medication however the tessie ent does not think she wants to deal with the side effects from this. Departure - Departure Time of Disposition: 00:24 Disposition: DC/Tfer to [facility] 03 Clinical Impression: Upper abdominal pain - Discharge Information Referrals: Shawnee Jacobs [facility]HO[facility] [Primary Care Provider] - Forms: ED Department Discharge Additional Instructions: Return to the emergency room with any questions problems or worsening symptoms. Use your topical nausea medication and/or Zofran as needed. Restart your Carafate take it 4 times daily before your morning midday and evening meals and again at bedtime take this for 7 days. Start Pepcid, or famotidine 20 mg twice daily for 1 week and then daily thereafter. Sepsis Event Note (ED) - Focused Exam Vital Signs: Vital Signs Temp Pulse Resp BP Pulse Ox 12/10/19 21:49 36.4 C 99 16 135/90 98 - My Orders Last 24 Hours: My Active Orders 12/10/19 22:28 Abdomen Ltd [US] Stat - Assessment/Plan Last 24 Hours: My Active Orders 12/10/19 22:28 Abdomen Ltd [US] Stat
[2019-12-10 21:52] VITALS: BP 135/90; PULSE 99
[2019-12-10] MEDS ORDERED: fentaNYL 100 MCG/2 ML SDV IVPUSH ONE (22:13)
[2019-12-10] MEDS ORDERED: Ondansetron 4 MG/2 ML SDV IVPUSH ONE (22:13)
[2019-12-10] MEDS ORDERED: Lactated Ringers 1,000 ML IV ONE (22:14)
--- NOTE | 2019-12-11 06:00 | US ---
Limited abdominal ultrasound: Multiple real-time images of the upper right abdomen were obtained. Liver is slightly echogenic. No focal abnormality is seen. Gallbladder not optimally distended. No shadowing gallstones are seen. Gallbladder wall appears slightly thickened believed to relate to the degree of distention. Right kidney shows no hydronephrosis or mass. Right kidney has a length of 11.1 cm. Visualized portions of the pancreas are within normal limits. Inferior vena cava is patent. Main portal vein shows normal hepatopedal flow. Impression: 1. Fatty infiltration within the liver. 2. Slightly contracted gallbladder with no shadowing gallstones. 3. No additional abnormality is appreciated on right upper quadrant abdominal ultrasound exam. Diagnostic code #3 This report was dictated in MDT I agree with preliminary report from María, finalized on 12/11/19, 1:03 AM Central Daylight Time
== END 2019-12-11 00:36 ==
LOC: JD.ED 21:28
DX: R10.10 Upper abdominal pain, unspecified (principal); I10 Essential (primary) hypertension; Z86.718 Personal history of other venous thrombosis and embolism; Z86.711 Personal history of pulmonary embolism; Z79.01 Long term (current) use of anticoagulants; Z88.5 Allergy status to narcotic agent; Z91.048 Other nonmedicinal substance allergy status; Z91.011 Allergy to milk products; Z88.2 Allergy status to sulfonamides
CPT/HCPCS: 36415; 76705; 80053; 81003; 82248; 82977; 83690; 85025; 96361; 96374; 96375; 99285; J1642; J2405; J3010; J7120; 99284

== ENCOUNTER 2021-10-10 14:10 | Emergency (ER) | payer BC, MEDICAID ==
[2021-10-10 14:40] VITALS: BP 138/91; PULSE 80
[2021-10-10] MEDS ORDERED: Sodium Chloride 0.9% 10 ML Syringe FLUSH PRN (14:59)
[2021-10-10] MEDS ORDERED: Ondansetron 4 MG/2 ML SDV IVPUSH ONE (14:59)
[2021-10-10] MEDS ORDERED: Sodium Chloride 0.9% 1,000 ML IV SCH (15:00)
[2021-10-10] MEDS ORDERED: HYDROmorphone 0.5 MG/0.5 ML Syringe IVPUSH ONE (15:01)
[2021-10-10] MEDS ORDERED: Pantoprazole 40 MG Vial IVPUSH ONE (15:01)
[2021-10-10 16:40] LABS: ESTIMATED GFR > 60 mL/min (>60)
== END 2021-10-10 18:00 | disposition home or self-care (01) ==
LOC: JD.ED 14:10
DX: R11.2 Nausea with vomiting, unspecified (principal); I10 Essential (primary) hypertension; K21.9 Gastro-esophageal reflux disease without esophagitis; E66.9 Obesity, unspecified; Z68.34 Body mass index [BMI] 34.0-34.9, adult; Z88.5 Allergy status to narcotic agent; Z91.011 Allergy to milk products; Z88.2 Allergy status to sulfonamides; Z91.018 Allergy to other foods
CPT/HCPCS: 36415; 80053; 81001; 83605; 83690; 84443; 85025; 86140; 96361; 96374; 96375; 99284; C9113; J1170; J2405; J3490; J7030

== ENCOUNTER 2022-01-07 09:07 | Emergency (ER) | payer BC, MEDICAID ==
[2022-01-07 09:29] VITALS: BP 130/73; PULSE 85
[2022-01-07] MEDS ORDERED: HYDROmorphone 1 MG/ML Syringe IVPUSH ONE (10:27)
[2022-01-07] MEDS ORDERED: Ondansetron 4 MG/2 ML SDV IVPUSH ONE (10:27)
[2022-01-07] MEDS ORDERED: Sodium Chloride 0.9% 10 ML Syringe FLUSH PRN (10:27)
[2022-01-07] MEDS ORDERED: Orphenadrine 100 MG Tab.ER PO STA (12:05)
[2022-01-07] MEDS ORDERED: Ibuprofen Susp 100 MG/5 ML 5 ML UD Cup PO STA (12:12)
[2022-01-07] MEDS ORDERED: Acetaminophen 325 MG/10.15 ML ML ONE (12:19)
[2022-01-07] MEDS ORDERED: Acetaminophen 325 MG/10.15 ML ML PO ONE (12:21)
== END 2022-01-07 12:43 | disposition home or self-care (01) ==
LOC: JD.ED 09:07
DX: M54.50 Low back pain, unspecified (principal); I10 Essential (primary) hypertension; E66.9 Obesity, unspecified; Z68.35 Body mass index [BMI] 35.0-35.9, adult; Z88.5 Allergy status to narcotic agent; Z91.018 Allergy to other foods; Z88.2 Allergy status to sulfonamides; Z91.011 Allergy to milk products; Z79.899 Other long term (current) drug therapy
CPT/HCPCS: 72148; 96374; 96375; 99283; A9270; J1170; J2405; J3490

== ENCOUNTER 2022-09-11 15:09 | Emergency (ER) | payer BC, MEDICAID ==
[2022-09-11 16:16] LABS: BASOPHILS ABSOLUTE AUTO 0.01 K/mm3 (0.01-0.08); BASOPHILS PERCENT AUTO 0.1 % (0.1-1.2); EOSINOPHILS ABSOLUTE AUTO 0.01 K/mm3 (0.04-0.36); EOSINOPHILS PERCENT AUTO 0.1 (0.7-5.8); HEMATOCRIT 43.4 % (34.1-44.9); HEMOGLOBIN 14.1 gm/dl (11.2-15.7); IMMATURE GRAN ABSOLUTE AUTO 0.01 K/mm3 (0.00-0.10); IMMATURE GRAN PERCENT AUTO 0.1 % (<=1.0); LYMPHOCYTES ABSOLUTE AUTO 1.63 K/mm3 (1.18-3.74); LYMPHOCYTES PERCENT AUTO 21.1 % (19.3-51.7); MEAN CORPUSCULAR HEMOGLOBIN 27.2 pg (25.6-32.2); MEAN CORPUSCULAR HGB CONC 32.5 g/dl (32.2-35.5); MEAN CORPUSCULAR VOLUME 83.8 fl (79.4-94.8); MEAN PLATELET VOLUME 10.2 fl (9.4-12.3); MONOCYTES ABSOLUTE AUTO 0.27 K/mm3 (0.24-0.36); MONOCYTES PERCENT AUTO 3.5 % (4.7-12.5); NEUTROPHILS ABSOLUTE AUTO 5.81 K/mm3 (1.56-6.13); NEUTROPHILS PERCENT AUTO 75.1 % (34.0-71.1); PLATELET COUNT,PLT 300 K/mm3 (182-369); RED BLOOD CELL COUNT 5.18 M/mm3 (3.98-5.22); WHITE BLOOD CELL COUNT,WBC 7.74 K/mm3 (3.98-10.04)
[2022-09-11 16:37] LABS: A/G RATIO 0.8 (1-2); ALANINE AMINOTRANSFERASE,ALT 51 U/L (14-59); ALBUMIN 3.5 g/dl (3.4-5.0); ALKALINE PHOSPHATASE 99 U/L (46-116); ANION GAP 15.7 (5-15); ASPARTATE AMNIOTRANSFERASE,AST 29 U/L (15-37); BILIRUBIN TOTAL 0.4 mg/dL (0.2-1.0); BLOOD UREA NITROGEN,BUN 6 mg/dL (7-18); BUN/CREATININE RATIO 6.7 (14-18); CALCIUM 8.8 mg/dL (8.5-10.1); CARBON DIOXIDE,CO2 22 mEq/L (21-32); CHLORIDE,CL 101 mEq/L (98-107); CREATININE 0.9 mg/dL (0.55-1.02); ESTIMATED GFR 82 mL/min (>60); GLUCOSE RANDOM 201 mg/dL (70-99); POTASSIUM,K 3.7 mEq/L (3.5-5.1); PROTEIN TOTAL,TP 7.7 g/dl (6.4-8.2); SODIUM,NA 135 mEq/L (136-145); TROPONIN I HIGH SENSITIVITY 4 pg/mL (<=51)
[2022-09-11 17:59] VITALS: BP 126/88; PULSE 100
== END 2022-09-11 17:15 | disposition home or self-care (01) ==
LOC: JD.ED 15:09
DX: R00.0 Tachycardia, unspecified (principal); I10 Essential (primary) hypertension; E66.9 Obesity, unspecified; Z79.02 Long term (current) use of antithrombotics/antiplatelets; Z79.899 Other long term (current) drug therapy; Z88.2 Allergy status to sulfonamides; Z88.5 Allergy status to narcotic agent; Z88.8 Allergy status to other drugs, medicaments and biological substances; Z91.018 Allergy to other foods
CPT/HCPCS: 36415; 80053; 84484; 85025; 93005; 93010; 99283; 99285